=== PATIENT | female | born 1940 | race Caucasian/White ===

== ENCOUNTER 2016-06-24 09:14 | Inpatient (IN) | payer OTHER, MEDICAID ==
[2016-06-24] MEDS ORDERED: PROPOFOL/EMULSION 1,000 MG/100 ML BOTTLE IV ONE (09:21)
[2016-06-24] MEDS ORDERED: MIDAZOLAM 2 MG/2 ML VIAL ONE ×2 (09:26→10:43)
--- NOTE | 2016-06-24 09:35 | EDPHY ---
H & P Time Seen by Provider: 06/24/16 09:30 HPI/ROS: CHIEF COMPLAINT: Found down HISTORY OF PRESENT ILLNESS: Patient is a 75-year-old female with history of obesity gout and hypertension according to her long term records was found down in the hallway with a hematoma to her left eyebrow. When EMS arrived she was unresponsive an agonal breathing. They began bagging her. She had a blood glucose of 23. They administered old glucagon and then an amp of D50 through an intraosseous line. Her glucose improved but her mental status did not. At this time they came emergently to the emergency department. REVIEW OF SYSTEMS: Unable to obtain Nursing assessment reviewed Vital signs reviewed febrile, agonal breathing Patient is again a breathing, lethargic, occasional moan HEAD: Hematoma left forehead lack I NECK: Unable to assess, no step-offs, trachea is midline, EYES: Pinpoint pupils, minimally reactive, unable to test extraocular movement ENT: Very few teeth, poor dentition, redundant tissue, sonorous respirations with bagging CARDIOVASCULAR: heart sounds normal, distant, not tachycardic or bradycardic, Chest is non-tender no rib tenderness no palpable fracture, no crepitus, no subcutaneous emphysema RESPIRATORY: Bilateral breath sounds with bagging and after intubation ABDOMEN: Abdomen is nontender in all 4 quadrants no guarding no rebound, no distention, no hernias, no masses or bruits. GENITAL/RECTAL: Normal external inspection, Stable pelvis NEUROLOGIC/PSYCH: Obtain ended , Shmuel Coma score: 3 SKIN: Intact, warm, dry, nondiaphoretic. BACK: No CVA tenderness, no vertebral point tenderness, no muscle spasm normal range of motion EXTREMITIES: Atraumatic, pelvis stable, no pulse deficit normal color and temperature Source: Patient, EMS, [facility] records Exam Limitations: No limitations - Medical/Surgical History Hx Asthma: No Hx Chronic Respiratory Disease: No Hx Diabetes: No Hx Cardiac Disease: Yes Hx Renal Disease: Yes Hx Cirrhosis: No Hx Alcoholism: No Hx HIV/AIDS: No Hx Splenectomy or Spleen Trauma: No Other PMH: Chronic kindey disease, morbid obesity, obstructive sleep apnea - Family History Significant Family History: Hypertension - Social History Smoking Status: Never smoked (According to H&P 06/21/2011) Drug Use: None Constitutional: Initial Vital Signs Temperature (C) 37.2 C 06/24/16 09:35 Heart Rate 120 H 06/24/16 09:35 Respiratory Rate 14 06/24/16 09:35 O2 Sat (%) 88 L 06/24/16 09:35 O2 Delivery Mode Bag Valve Mask Allergies/Adverse Reactions: amlodipine Allergy (Intermediate, Verified 06/21/11 11:48) amlodipine besylate [From Norvasc] Allergy (Intermediate, Verified 06/21/11 11: 48) aspirin Allergy (Intermediate, Verified 06/21/11 11:48) codeine [Codeine] Allergy (Intermediate, Verified 06/21/11 11:48) hydrochlorothiazide Allergy (Intermediate, Verified 06/21/11 11:48) Penicillins Allergy (Intermediate, Verified 06/21/11 11:48) gluten Allergy (Verified 07/02/15 09:42) lorazepam Allergy (Verified 07/03/15 08:51) Sulfa (Sulfonamide Antibiotics) Allergy (Verified 07/01/15 07:19) triamterene Allergy (Verified 07/01/15 07:19) dye Allergy (Intermediate, Uncoded 06/21/11 11:48) gluten Allergy (Intermediate, Uncoded 06/21/11 11:48) Home Medications: Medication Instructions Recorded Acetaminophen [Tylenol ES 500 mg 1,000 mg PO QID PRN 06/21/11 (*)] Allopurinol [Allopurinol 100 MG 400 mg PO DAILY 06/21/11 (*)] Bisacodyl [Dulcolax Rectal (OTC)] 10 mg SC DAILY PRN 06/21/11 Furosemide [Lasix 40 MG (*)] 40 mg PO BIDDIUR 06/21/11 Magnesium Hydroxide [Milk of 30 ml PO DAILY PRN 06/21/11 Magnesia] Multivitamins [Multivitamin (*)] 1 each PO DAILY 06/21/11 Sennosides/Docusate Sodium 2 each PO BID 06/21/11 [Senna-Docusate Sodium Tablet] oxyCODONE/APAP 5/325 [Percocet 1 tab PO Q4 PRN 06/21/11 5/325 (*)] Calcium Carb W/Vit D [Calcium Carb 500 mg PO BID 07/01/15 W/Vit D 500/200 (*)] Ipratropium/Albuterol [Duoneb (*)] 3 ml IH Q4 PRN 07/01/15 Mag Hydrox/Al Hydrox/Simeth 30 ml PO TID PRN 07/01/15 [Maalox Maximum Strength Suspension] Psyllium Husk [Metamucil] 425 gm PO DAILY PRN 07/01/15 Simethicone [GAS-X] 160 mg PO Q6 PRN 07/01/15 clonazePAM [Klonopin (*)] 0.5 mg PO HS 07/01/15 guaiFENesin [Robitussin Oral 200 mg PO Q4 PRN 07/01/15 Liquid (*)] Gabapentin [Neurontin 300 MG (*)] 300 mg PO TID #0 cap 07/08/15 Cholecalciferol Vit D3 [Vitamin D3 50,000 unit PO AD 06/24/16 (*)] Clindamycin HCl [Clindamycin] 300 mg PO Q6 06/24/16 Herbals/Supplements -Info Only 1 ea PO DAILY 06/24/16 LORazepam [Ativan (*)] 1 mg PO Q6 PRN 06/24/16 Metolazone [Zaroxolyn 5MG (*)] 2.5 mg PO MWF 06/24/16 Potassium Cl [Klor-Con 20 meq (*)] 20 meq PO DAILY 06/24/16 Prochlorperazine Maleate 25 mg SC Q8 PRN 06/24/16 [Compazine 25mg supp (*)] Venlafaxine HCl [Venlafaxine 25MG 50 mg PO BID 06/24/16 (*)] Medical Decision Making - Diagnostics Imaging: Results: CT scan of the head and cervical spine was obtained. The results of the study are negative other than hematoma. The study was read by Dr. Albert. I viewed the images myself on the PACS system. Results: CT scan of the chest abdomen and pelvis was obtained. The results of the study are positive for bilateral pneumonia and infiltrate, some fluid in the abdomen and gas in the right groin likely from the IO. The study was read by Dr. Albert. I viewed the images myself on the PACS system. Procedures: Intubation: emergent intubation the patient. While manually bagging the patient and maintaining the airway, The patient was sedated with 20 mg of Etomidate and paralyzed with 100 mg of succinylcholine. A 7.5 endotracheal tube was placed using the Glidescope. It was placed at 21 cm at the teeth. Placement was confirmed by direct visualization, good color change, and bilateral breath sounds with absent gastric sounds. Chest x-ray is pending. Saturations improved significantly and the procedure was successful. ED Course/Re-evaluation: Soon after patient arrival I called a trauma alert. The patient was intubated and is going to CT scan. She also has a fever. Her hypoglycemia has resolved on I-STAT here her blood sugars 95. 9:40 a.m. the patient's blood pressure is beginning to drop. Currently is 80/ 30. Dr. Mendoza is placing a central line. We are bolusing fluids. Patient is not yet been able to go to CT scan. 10:45 a.m. the patient is responding to fluids. Her blood pressure is currently 103/65. Dr. Mendoza is placed a central line. Antibiotics have begun. Have spoken with hospitalist service and she is admitted by Dr. Joyce to the ICU. I reviewed the CT scan with Dr. Mendoza who does not feel there is any acute abdominal issue. 11:00 a.m. the patient has responded well to fluids. She is also on pressors. Her blood pressure is currently 120/55. Differential Diagnosis: Partial list of the Differential diagnosis considered include but were not limited to; pneumonia, sepsis, head injury, hypoglycemia, urinary tract infection and although unlikely based on the history and physical exam, I also considered acute coronary disease, dissection, aneurysm. Critical Care Time: I spent a total of 35 minutes of critical care time in obtaining history, performing a physical exam, bedside monitoring of interventions, collecting and interpreting tests and discussion with consultants but not including time spent performing procedures . - Data Points Laboratory Results: Laboratory Results 06/24/16 09:20 06/24/16 09:20 06/24/16 06/24/16 06/24/16 10:38 09:20 09:19 WBC 12.08 H 10^3/uL (3.80-9.50) RBC 3.98 L 10^6/uL (4.18-5.33) Hgb 10.3 L g/dL (12.6-16.3) POC Hgb 11.9 L gm/dL (12.3-15.9) Hct 35.9 L % (38.0-47.0) POC Hct 35 L % (35.5-47.5) MCV 90.2 fL (81.5-99.8) MCH 25.9 L pg (27.9-34.1) MCHC 28.7 L g/dL (32.4-36.7) RDW 19.4 H % (11.5-15.2) Plt Count 231 10^3/uL (150-400) MPV 9.7 fL (8.7-11.7) Neut % (Auto) 90.8 H % (39.3-74.2) Lymph % (Auto) 4.4 L % (15.0-45.0) [place] % (Auto) 3.7 L % (4.5-13.0) Eos % (Auto) 0.0 L % (0.6-7.6) Baso % (Auto) 0.2 L % (0.3-1.7) Nucleat RBC Rel Count 0.0 % (0.0-0.2) Absolute Neuts (auto) 10.97 H 10^3/uL (1.70-6.50) Absolute Lymphs (auto) 0.53 L 10^3/uL (1.00-3.00) Absolute Monos (auto) 0.45 10^3/uL (0.30-0.80) Absolute Eos (auto) 0.00 L 10^3/uL (0.03-0.40) Absolute Basos (auto) 0.02 10^3/uL (0.02-0.10) Absolute Nucleated RBC 0.00 10^3/uL (0-0.01) Immature Gran % 0.9 % (0.0-1.1) Immature Gran # 0.11 H 10^3/uL (0.00-0.10) Platelet Estimate ADEQUATE (ADEQ) Polychromasia 1+ H Hypochromasia 1+ H Elliptocytes 1+ H PT 26.9 H SEC (12.0-15.0) INR 2.46 H (0.83-1.16) APTT 33.7 SEC (23.0-38.0) VBG Lactic Acid 14.7 H mmol/L (0.7-2.1) POC Sodium 141 mEq/L (134-144) Sodium 144 mEq/L (134-144) POC Potassium 2.9 L mEq/L (3.3-5.0) Potassium 3.3 L mEq/L (3.5-5.2) POC Chloride 95 L mEq/L (96-108) Chloride 95 L mEq/L (97-110) Carbon Dioxide 24 mEq/l (22-31) Anion Gap 25 H mEq/L (8-16) POC BUN 48 H mg/dL (7-23) BUN 51 H mg/dL (7-23) Creatinine 2.0 H mg/dL (0.6-1.0) POC Creatinine 2.1 H mg/dL (0.6-1.2) Estimated GFR 24 Glucose 92 mg/dL (70-100) POC Glucose 94 mg/dL (70-100) Calcium 7.8 L mg/dL (8.5-10.4) Beta HCG, Qual NEGATIVE Urine Color REJ Urine Appearance TNP Urine pH TNP Ur Specific [place] TNP Urine Protein TNP Urine Ketones TNP Urine Blood TNP Urine Nitrate TNP Urine Bilirubin TNP Urine Urobilinogen TNP Ur Leukocyte Esterase TNP Urine RBC TNP Urine WBC TNP Ur Epithelial Cells TNP Urine Glucose TNP Urine Opiates Screen NEGATIVE (NEGATIVE) Urine Barbiturates NEGATIVE (NEGATIVE) Ur Phencyclidine Scrn NEGATIVE (NEGATIVE) Ur Amphetamine Screen NEGATIVE (NEGATIVE) U Benzodiazepines Scrn NON-NEGATIVE H (NEGATIVE) Urine Cocaine Screen NEGATIVE (NEGATIVE) U Marijuana (THC) Screen NEGATIVE (NEGATIVE) Ethyl Alcohol < 10 mg/dL (0-10) Medications Given: Discontinued Medications Dopamine HCl/Dextrose (Dopamine 1600 Mcg/Ml (Premix)) 250 mls @ 0 mls/hr IV EDNOW ONE; Titrate PRN Reason: Protocol Stop: 06/24/16 09:51 Last Admin: 06/24/16 09:50 Dose: 250 mls Norepinephrine 4 mg/ Sodium (Chloride) 504 mls @ 0 mls/hr IV EDNOW ONE; Titrate PRN Reason: Protocol Stop: 06/24/16 10:35 Last Admin: 06/24/16 11:00 Dose: 504 mls Ertapenem 1 gm/ Sodium (Chloride) 100 mls @ 200 mls/hr IV EDNOW ONE PRN Reason: Protocol Stop: 06/24/16 11:05 Last Admin: 06/24/16 11:56 Dose: 100 mls Sodium Chloride (Ns *For Sepsis Order Set Only*) 3,540 ml IV ONCE ONE Stop: 06/24/16 13:48 Last Admin: 06/24/16 14:38 Dose: Not Given Point of Care Test Results: 06/24/16 09:19 POC Sodium 141 POC Potassium 2.9 L POC Chloride 95 L POC BUN 48 H POC Creatinine 2.1 H POC Glucose 94 Departure - Departure Disposition: [facility] Inpatient Acute Clinical Impression: Sepsis Qualifiers: Sepsis type: sepsis due to unspecified organism Qualifier Code: (A41.9) Sepsis , unspecified organism Pneumonia Qualifiers: Pneumonia type: due to unspecified organism Laterality: bilateral Lung location : lower lobe of lung Qualifier Code: (J18.9) Pneumonia, unspecified organism Head injury Qualifiers: Encounter type: initial encounter Qualifier Code: (S09.90XA) Unspecified injury of head, initial encounter Condition: Critical
[2016-06-24 09:38] LABS: % IMMATURE GRANULYOCYTES 0.9 % (0.0-1.1); ABSOLUTE IMMATURE GRANULOCYTES 0.11 10^3/uL (0.00-0.10); ADD DIFF? NO; ADD MORPH? YES; ADD SCAN? NO; ATYPICAL LYMPHOCYTE FLAG 30 (0-99); FRAGMENT RBC FLAG 20 (0-99); HEMATOCRIT 35.9 % (38.0-47.0); HEMOGLOBIN 10.3 g/dL (12.6-16.3); LEFT SHIFT FLG 0 (0-99); LIPEMIA HEMOLYSIS FLAG 70 (0-99); MEAN CELL HEMOGLOBIN 25.9 pg (27.9-34.1); MEAN CELL VOLUME 90.2 fL (81.5-99.8); MEAN PLATELET VOLUME 9.7 fL (8.7-11.7); PLATELET CLUMPS FLAG 40 (0-99); PLATELET COUNT 231 10^3/uL (150-400); RED BLOOD CELL COUNT 3.98 10^6/uL (4.18-5.33); RED CELL DISTRIBUTION WIDTH 19.4 % (11.5-15.2)
[2016-06-24] MEDS ORDERED: DOPamine/DEXTROSE/250 ML BAG IV ONE (09:40)
[2016-06-24 09:47] LABS: INR 2.46 (0.83-1.16); PROTIME(PATIENT) 26.9 SEC (12.0-15.0)
[2016-06-24 09:48] LABS: APTT 33.7 SEC (23.0-38.0); MEAN CELL HEMOGLOBIN CONCENTR. 28.7 g/dL (32.4-36.7)
[2016-06-24 09:54] LABS: ANION GAP 25 mEq/L (8-16); CALCIUM 7.8 mg/dL (8.5-10.4); CARBON DIOXIDE 24 mEq/l (22-31); CHLORIDE 95 mEq/L (97-110); ETHANOL SERUM < 10 mg/dL (0-10); GLOMERULAR FILTRATION RATE 24; GLUCOSE 92 mg/dL (70-100); POTASSIUM 3.3 mEq/L (3.5-5.2); SODIUM 144 mEq/L (134-144)
[2016-06-24 10:32] LABS: PLATELET ESTIMATE ADEQUATE (ADEQ)
[2016-06-24 10:33] LABS: ELLIPTOCYTES 1+; HYPOCHROMIA 1+; POLYCHROMASIA 1+
[2016-06-24] MEDS ORDERED: NOREPINEPHRINE BITARTRATE 4 MG in NS 500 ML IV ONE (10:34)
[2016-06-24] MEDS ORDERED: ERTAPENEM 1 GM in NS 100 ML IV ONE (10:36)
[2016-06-24 10:38] LABS: LACGHOST ORDER
[2016-06-24] MEDS ORDERED: fentaNYL 100 MCG/2 ML INJ ONE (10:44)
--- NOTE | 2016-06-24 11:04 | CT ---
CT Cervical Spine Indication: Trauma. Comparison: None. Technique: 1.25 mm thick axial collimated slices were obtained from the occiput through superior endp late of T2. The data were reconstructed in the sagittal and coronal planes. Both soft tissue and bone windows were reviewed. Dose reduction techniques were utilized. Findings: The occiput through T2 is anatomically aligned. No acute fracture or soft tissue swelling. The bones are demineralized. The lung apices are clear. An ET tube is present in the airway. Impression: 1. No acute fracture or soft tissue swelling. 2. If the patient has persistent pain or neurologic deficits, consider cervical spine MRI. Findings discussed with emergency department physician, Jewel Zuñiga at June 24, 2016, at 10 :40 a.m.
--- NOTE | 2016-06-24 11:09 | CT ---
CT Head (Without Contrast) 10:07 a.m. Indication: Full trauma. Found down. Comparison: CT head dated July 02, 2015, and brain MRI dated July 05, 2015 Technique: Standard noncontrast head CT protocol utilizing 5 mm thick collimated slices and field of view of 23 cm. Dose reduction techniques were utilized. Findings: A large left periorbital hematoma is present along the lateral wall of the left orbit and l ow left frontal bone. No underlying acute skull or facial fracture. No acute intracranial hemorrhage or swelling. Atrophy, mild low attenuation periventricular white matter disease, and partially calcified low atten uation extraaxial lesion in the right middle fossa, measuring 2.7 cm, are unchanged. Mild mucosal thi ckening in the ethmoid and maxillary air cells is unchanged. Impression: 1. Left periorbital hematoma. 2. No acute skull or facial fracture. 3. No acute intracranial hemorrhage or swelling 4. Suspected epidermoid cyst in the right middle fossa is unchanged. Findings discussed with emergency department physician Jewel Zuñiga, June 24, 2016, at 10:40 a .m.
--- NOTE | 2016-06-24 11:21 | CT ---
CT Chest Without Contrast Indication: Trauma. History of pulmonary nodules. Attempted left subclavian line. Technique: Standard CT of the chest utilizing 5 mm collimated slices through the thorax. Dose reduct ion techniques were utilized. Comparison: CT chest dated July 27, 2015,and July 05, 2015. Findings: No acute rib, sternal, or thoracic spine fracture. An ET tube is well positioned with the tip 3 cm above the roger. Minimal subcutaneous gas and strand ing are present in the left axilla at site of an attempted left subclavian line placement. No pneumot horax. The aortic contour is normal. No mediastinal hematoma. The heart size is minimally enlarged with thre e-vessel calcified coronary plaque. Minimal gas resides in the right atrium, likely due to IV access. Dense left lower lobe airspace consolidation with air bronchograms is accompanied by patchy nodular airspace consolidation in the right lower lobe, posterior segment left upper lobe, and posterior segm ent right upper lobe. Ground-glass opacities are scattered throughout the right and left lungs with r elative sparing of the subpleural distribution suggesting underlying interstitial edema. Numerous pulmonary nodules are present throughout the right and left lungs. The two largest nodules i n the right lower lobe and posterior segment left upper lobe adjacent to the fissure have both minima lly increased in size since 2016. For example, a nodule in the right lower lobe on image 105 of serie s 3 now measures 1.5 x 1.0 cm (previously 1.3 x 0.9 cm) and a nodule in the left upper lobe adjacent the major fissure on image 65 of series 4 now measures 2.0 x 1.3 cm (previously 1.7 x 0.8 cm). Small to moderate right pleural effusion and trace left effusion. No pericardial effusion. Impression: 1. No acute fracture or pneumothorax. 2. Well-positioned ET tube. 3. Suspect multifocal airspace consolidation or aspiration rather than pulmonary contusion. 4. Small to moderate right and trace left pleural effusion. 5. Three-vessel calcified coronary plaque and minimal cardiomegaly. Equivocal edema. 6. Increasing in size pulmonary nodules. Recommend follow-up noncontrast chest CT after resolution of acute process to confirm size of pulmonary nodules. Findings discussed with emergency department physician, Jewel Zuñiga, on June 24, 2016, at 10: 30 a.m.
--- NOTE | 2016-06-24 11:38 | CT ---
CT Scan of the Urinary Tract (Abdomen and Pelvis Without Contrast) Indication: Full Trauma. 2.1 creatinine. Technique: Multidetector helical CT imaging was performed from the kidneys to the urinary bladder wi thout contrast. Dose reduction techniques were utilized. Comparison: CT abdomen pelvis dated July 01, 2015. Findings: Small volume of free fluid present along the anterior surface of the liver and posterior paz rface of the spleen tracks inferiorly into the ted hepatis and surrounds the pancreatic head. Trace free fluid resides in the low pelvis. The fluid along the surface of liver is low attenuation with H [place] unit of 4. No pneumoperitoneum or organized fluid collection. The noncontrast liver is partially obscured by attenuation artifact radiating off the patient's right arm. No definite solid organ laceration. Partial fatty replacement of the pancreas is unchanged. Per ipancreatic edema and stranding are new since June 2015. No biliary dilation or evidence of commo n bile duct stone. The gallbladder is absent with surgical clips in the gallbladder fossa. Benign bilateral adrenal myelolipomas are unchanged in size. Benign bilateral fluid attenuation renal cysts are unchanged. The largest emanating off the superior pole of the left kidney measures 8.5 cm. No hydronephrosis. A 2 mm calculus in the right intrarenal collecting system is unchanged in size an d position. No ureteral calculi or hydroureteronephrosis. The urinary bladder is completely empty and contains a Mchugh catheter balloon. Large low left abdominal wall hernia containing uninflamed, unobstructed loops of small bowel is unch anged in size. Minimal fluid is present in the dependent portion of the hernia sac. Large volume abhinav ined stool is present throughout the colon. Transverse colon and cecum have mild gaseous distention s uggestive of mild adynamic ileus. No evidence of mechanical obstruction. The abdominal aorta is normal caliber with mild calcified plaque. Inferior vena caval filter is uncha nged in position. Several small gas bubbles are present in the right common femoral vein. No acute lumbar spine or pelvic fracture. Diffuse subcutaneous edema is present along bilateral flank s. No abdominal wall hematoma. Impression: 1. No acute fracture. 2. Small volume of simple free fluid throughout the right and left upper quadrant and pelvis. Suspect benign free fluid rather than hemoperitoneum. 3. Query pancreatitis as underlying source of free fluid. 4. The test is limited since no IV contrast was administered (elevated creatinine) 5. Mild adynamic ileus. No mechanical obstruction. 6. Left lower abdominal wall hernia containing uninflamed, unobstructed loops of small bowel is unch anged since June 2015. Findings discussed with emergency department physician, Jewel Zuñiga, on June 24, 2016, at 10 :30 a.m.
--- NOTE | 2016-06-24 11:54 | DX ---
Portable Chest, Single View 10:46 AM on June 24, 2016 Indication: Found down. Comparison: Portable chest dated July 04, [address] chest from less than one hour prior. Findings: The ET tube is well-positioned with the tip 3.5 cm superior to the roger. A right subclavi an central venous line is present with the tip in the low right atrium. No pneumothorax. Diffuse groundglass opacities throughout the right lung have equivocally increased. Dense left basila r consolidation and patchy consolidation in the left upper lobe are unchanged. Moderate cardiomegaly. No acute fracture. Impression: 1. Good position of support devices. No pneumothorax. 2. Equivocal worsening interstitial edema. 3. Left lung consolidation, more likely pneumonia or aspiration than contusion is unchanged.
[2016-06-24] MEDS ORDERED: SUCCINYLCHOLINE CHLORIDE*ANESTHESIA ONLY*200 MG/10 ML SYR IVP ONE (13:20)
[2016-06-24] MEDS ORDERED: ETOMIDATE 40 MG/20 ML INJ ONE (13:20)
[2016-06-24] MEDS ORDERED: LORazepam 1 MG TAB PO PRN (13:44)
[2016-06-24] MEDS ORDERED: ACETAMINOPHEN 500 MG TAB PO PRN (13:44)
[2016-06-24] MEDS ORDERED: NS 1,000 ML BAG *FOR SEPSIS ORDER SET ONLY IV ONE (13:47)
[2016-06-24] MEDS ORDERED: PROTOCOL POTASSIUM 1 DOSE MISC PRN (13:56)
[2016-06-24] MEDS ORDERED: D5W NS 1,000 ML IV SCH (14:00)
[2016-06-24] MEDS ORDERED: VASOPRESSIN/DEXTROSE 250 ML IV SCH (14:00)
[2016-06-24] MEDS ORDERED: NOREPINEPHRINE BITARTRATE 4 MG in D5W 500 ML IV SCH (14:00)
[2016-06-24 14:21] LABS: BASE EXCESS 1.4 mEq/L (-2.5-2.5); BICARBONATE 25 mEq/L (22-26); MEASURED OXYGEN SATURATION 90 % (92-95); PCO2 38 mmHg (34-38); PO2 61 mmHg (65-75); TCO2 26 mEq/L (23-27)
[2016-06-24 14:24] LABS: SIMV YES
--- NOTE | 2016-06-24 14:24 | CPEKG ---
Heart Rate: 83 RR Interval: 723 QRSD Interval: 94 QT Interval: 338 QTC Interval: 398 QRS [place]: 64 T Wave [place]: -14 EKG Severity - ABNORMAL ECG - EKG Impression: ATRIAL FIBRILLATION EKG Impression: MULTIPLE VENTRICULAR PREMATURE COMPLEXES EKG Impression: LOW VOLTAGE IN FRONTAL LEADS EKG Impression: CONSIDER ANTERIOR INFARCT EKG Impression: BORDERLINE T ABNORMALITIES, DIFFUSE LEADS Electronically Signed By: Kannan Chavez 24-Jun-2016 14:40:27
[2016-06-24 14:25] LABS: END TIDAL CO2 33; P/F RATIO 61 RATIO
[2016-06-24 14:26] LABS: O2 CONCENTRATIION 100 % (0-100); PATIENT RATE 14; PRESSURE SUPPORT 7
[2016-06-24 14:42] LABS: ALANINE AMINOTRANSFERASE 238 IU/L (9-52); ALBUMIN 2.6 g/dL (3.5-5.0); ALKALINE PHOSPHATASE 219 IU/L (38-126); ASPARTATE AMINOTRANSFERASE 686 IU/L (14-46); BILIRUBIN,TOTAL 1.8 mg/dL (0.1-1.4); BILIRUBIN-CONJUGATED 1.6 mg/dL (0.0-0.5); BILIRUBIN-UNCONJUGATED 0.2 mg/dL (0.0-1.1); TOTAL PROTEIN 6.2 g/dL (6.3-8.2)
[2016-06-24] MEDS: GABAPENTIN 300 MG CAP PO SCH ×2 (14:45→21:53)
[2016-06-24 14:54] LABS: COLOR YELLOW; LEUKOCYTE ESTERASE,URINE NEGATIVE (NEGATIVE); NITRITE,URINE NEGATIVE (NEGATIVE)
[2016-06-24 14:58] LABS: BACTERIA NONE SEEN /hpf (NONE SEEN); GRANULAR CASTS 15-25 /lpf (0-1); MUCUS TRACE /lpf (NONE-1+)
--- NOTE | 2016-06-24 15:34 | GHP ---
[f rep st] HISTORY AND PHYSICAL DATE OF ADMISSION: 06/24/2016 CHIEF COMPLAINT: Found down. HISTORY: The patient is a 75-year-old female, long-term resident of [facility], who was found aft er sliding out of her bed and found on the floor. She had a hematoma of her left eyebrow. She was u nresponsive. EMS was called and she was, on their arrival, unresponsive with agonal bleeding. Blood glucose in the field was 23. She was given IO and administered glucagon and D50. Her glucose ian; however, she remained unresponsive. She presented to the emergency room and was intubated in the ER . A central line was placed by Dr. Mendoza. She was found to be febrile. Her sister is currently at bedside and reports that the patient has a chronic Mchugh catheter for a lo ng period of time due to chronic urinary retention. She had developed a fever a couple of weeks ago, and [facility] diagnosed her with a urinary tract infection and started her o n antibiotics. She comes to us on oral clindamycin. The fever did go way and it felt like she was i mproving, although she was having increasing anxiety and agitation and had newly been started on Ativ an. She also struggles with chronic lower extremity edema and had been told at the [facility] to d ecrease her oral intake to try to reduce her lower extremity edema. Her edema is currently much bett er than her baseline. PAST MEDICAL HISTORY: 1. Morbid obesity. 2. Gout. 3. Hypertension. 4. Urinary retention with hydronephrosis with chronic Mchugh catheter. 5. Epidermoid cyst compressing the temporal lobe, causing a seizure disorder. 6. DVT and pulmonary embolus, status post IVC filter. 7. Celiac disease. 8. Chronic kidney disease, baseline creatinine 1.4. MEDICATIONS: Please see computer record for a full detailed list. ALLERGIES: Penicillin, sulfa, IV dye. SOCIAL HISTORY: No smoking. No alcohol. She is a permanent resident at [facility]. She is uday mbulatory at baseline. Her mental status, however, is very good and she keeps very up to date on cur rent events. Her sister is her power of camper assembler and is currently at bedside. REVIEW OF SYSTEMS: Review of systems is unobtainable due to the patient being intubated and sedated. FAMILY HISTORY: Unobtainable. PHYSICAL EXAMINATION: GENERAL: Well-developed, well-nourished female in no acute distress. VITAL S IGNS: Temperature is 38.4, pulse 120, blood pressure 100/57, satting 100% on the vent. HEENT: Eyes : Normal conjunctivae. Pupils equal and react to light. ENT: Normal ears and nose. Endotracheall y intubated. Oropharynx dry. NECK: Trachea midline. No thyromegaly. CHEST: Decreased respirator y effort on the vent. LUNGS: Clear to auscultation bilaterally. CARDIOVASCULAR: Regular rate and rhythm. No murmur. 3 to 4+ lower extremity edema, which appears chronic with chronic venous stasis changes. ABDOMEN: Soft, nontender. No hepatosplenomegaly. SKIN: Warm, dry, and intact. No rash. MUSCULOSKELETAL: Unobtainable due to patient being intubated and sedated. NEURO: Unobtainable du e to patient being intubated and sedated. Psych: Intubated, sedated, minimally responsive, although she is withdrawing to pain as the ABG is attempting to be obtained. LABS: White count 12.08, hematocrit 35.9, platelets 231. Sodium 144, potassium 3.3, chloride 95, bi carb 24, BUN 51, creatinine 2.0, glucose 92. INR is 2.46. Lactate is 14.7. CT scan of the chest shows pneumonia, suspicious for aspiration and increasing size of previously see n pulmonary nodules. ASSESSMENT/PLAN: 1. Septic shock. She is currently on pressors. Source of sepsis is likely pneumonia versus urinary tract infection. She came in as a trauma alert to the ER given the fact she was found down with a p eriorbital hematoma, and so she was not fully cultured per routine. I will try to get blood cultures , urine cultures, and sputum sent on any fluid that might have been obtained prior to initiating IV I nvanz in the emergency room. She is a [facility] resident, so therefore at risk for Pseudomonas an d methicillin-resistant Staphylococcus aureus, so we will empirically treat her with meropenem and va ncomycin. Continue norepinephrine. She did get a 6 L IV fluid bolus in the emergency room, and we w ill place her on sepsis protocol. Her lactate is very elevated, and this will be followed serially. 2. Acute respiratory failure. She is intubated. We will check an ABG. 3. Acute on chronic kidney disease. Baseline creatinine is 1.4. We will hold her diuretics and fol low up post hydration. 4. Urinary retention with chronic Mchugh catheter. She was recently treated for a urinary tract infe ction [facility] the [facility] with oral clindamycin. We will contact Nikki Chen to see results of rec ent urine culture. 5. Hypoglycemia secondary to sepsis. She also has an elevated INR despite not being on anticoagulat ion. This suggests a degree of hepatic failure. We will check her LFTs. 6. Morbid obesity. BMI is 42. 7. Pulmonary embolus and deep venous thrombosis, status post IVC filter. 8. Chronic venous stasis. We will hold her diuretics. We will check bilateral lower extremity ultr asounds for deep venous thrombosis. 9. Seizure disorder secondary to an epidermal cyst at the temporal lobe. Her only seizure medicatio n appears to be gabapentin. 10. Pulmonary nodules. These are increasing in size compared with our previous CAT scan. These jorgito l need to be followed. CORE STATUS: Limited. She does not desire CPR according to her sister but otherwise is okay with ev erything else. ADMISSION STATUS: 1. We will admit to inpatient as she is critically ill. 2. DVT prophylaxis. She is auto anticoagulated with an elevated INR, so therefore we will hold off on pharmacologic prophylaxis at this time. We will rule out DVT in her legs prior to administering S CDs. Critical care time spent was 1 hour. /[id number]/MODL
[2016-06-24 15:41] LABS: MIXED VENOUS O2 SATURATION 79 % (65-75)
[2016-06-24] MEDS: VANCOMYCIN 1.25 GM in D5W 250 ML IV SCH (15:45)
[2016-06-24] MEDS: PROPOFOL/EMULSION 100 ML IV SCH (15:45)
--- NOTE | 2016-06-24 15:48 | US ---
Ultrasound Venous Duplex Doppler - Bilateral Legs at 1443 hours History: Bilateral leg edema. Findings: Ultrasound venous Duplex and Doppler imaging of the bilateral common femoral veins, femoral veins, popliteal veins, and greater saphenous vein origins demonstrates normal compressibility, Dup sofya color-flow, Doppler flow without deep venous thrombosis. Limited evaluation of bilateral calf vei ns due to patient body habitus. Impression: 1. No major deep venous thrombosis bilateral legs. 2. Limited evaluation of the calf veins.
[2016-06-24 19:02] LABS: POTASSIUM 2.6 mEq/L (3.5-5.2)
[2016-06-24] MEDS: POTASSIUM Cl (KCl) 50 ML IV SCH ×2 (19:17→20:13)
--- NOTE | 2016-06-24 20:00 | GCON ---
[f rep st] CONSULTATION PULMONARY CRITICAL CARE CONSULTATION DATE OF CONSULTATION: 06/24/2016 REASON FOR CONSULTATION: Acute respiratory failure in a patient found down at her care home. HISTORY: The patient is a 75-year-old woman with multiple medical problems as outlined below. She was found unresponsive on the floor of her care home, apparently next to her bed. She had a hematoma above her left eye. She was not responsive. The paramedics found agonal breathing and a blood glucose reportedly of approximately 20. D10 was given, and she was transported to the emergency department. She was unresponsive on arrival. She was intubated, a central line placed. She is a long-time resident of [facility]. She was recently found to have a urinary tract infection and apparently has been on antibiotics of clindamycin. She is wheelchair bound at the care home, has multiple medical problems including a chronic indwelling Mchugh catheter, morbid obesity, previous pulmonary embolic disease, status post an IVC filter, chronic hypoxemia, etc. PAST MEDICAL HISTORY: Morbid obesity, systemic hypertension, hydronephrosis and urinary retention associated with chronic renal insufficiency. She has a chronic indwelling Mchugh catheter, a seizure disorder, celiac disease, and gout. DRUG ALLERGIES: Multiple. These include amlodipine, aspirin, codeine, hydrochlorothiazide, penicillins, lorazepam, sulfa preparations, triamterene, contrast, and gluten. SOCIAL HISTORY: The patient lives at [facility]. Despite her medical problems, she apparently does fairly well there. She was last hospitalized one year ago. She has limited resuscitation status with no compressions. Her sister is the power of patent prosecution attorney. FAMILY HISTORY: Noncontributory. REVIEW OF SYSTEMS: Unobtainable. MEDICATIONS: She is on multiple medications at home including DuoNeb, clindamycin, venlafaxine, Neurontin 300 three times daily, Lasix, Zaroxolyn, potassium, and allopurinol. PHYSICAL EXAMINATION: GENERAL: Reveals a woman who is unresponsive to voice and commands currently; however, she is on the ventilator and somewhat sedated. She will withdraw extremities to painful stimulation. HEENT: An endotracheal tube in is in place. Ecchymosis and swelling related to the left eye and periorbital area. Left eye is swollen shut. CHEST: Reveals decreased breath sounds bilaterally. Breath sounds are coarse. There is some possible dullness at the bases. She does have some thick purulent secretions, a few rhonchi, and some wheezes/pulmonary congestion. HEART: Heart tones are quite distant secondary to body habitus. The heart rate is approximately 75. Murmurs and gallops are difficult to appreciate. ABDOMEN: Quite obese. It appears to be soft. Bowel sounds are very diminished but present. A chronic indwelling Mchugh catheter is in place. Urine output is low. EXTREMITIES: Remarkable for 2 to 3+ chronic lower extremity edema. Cords and tenderness cannot be assessed. NEUROLOGIC: Nonfocal; however, she remains obtunded. Pupils appear equal. DIAGNOSTIC STUDIES: CT scan of the chest shows a pleural effusion on the right side with associated atelectasis, left lower lobe infiltrate and a small pleural effusion on the left. LABORATORY: White blood cell count is 12,000, hematocrit 36, platelets are 231, 000. INR at admission was 2.46, PTT 33.7. Arterial blood gas shows a pH of 7.43 on the ventilator, a pCO2 of 38, and PO2 of 61. Lactate is 2.7, mixed venous O2 is 79. Sodium is 144, potassium 3.3, BUN 51, with a creatinine of 2.0. Glucose is 92. Bilirubin is 1.8 with an AST of 686 and an ALT of 238. Albumin is 2.6. Lipase was normal. Urinalysis is positive for protein and some blood; however, no red blood cells were seen. There were no white blood cells. No urine bacteria seen. Tox screen was negative on admission except for some benzodiazepines. ASSESSMENT: 1. Found down. The etiology for her collapse is unknown but was apparently associated with hypoglycemia. However, following glucose, she has not woken up. Multiple etiologies for her collapse at [facility] are possible. She did strike her head in the left eye area and has associated hematoma and swelling. CT scan of the head was negative for intracranial injury. 2. Acute respiratory failure. Status post intubation. On the ventilator. Still requiring high-flow oxygen. 3. Probable pneumonia related to the left lower lobe. She could have aspirated ? Broad-spectrum antibiotics are being given. 4. Right-sided pleural effusion. Probably secondary to congestive heart failure. 5. Morbid obesity. 6. Multiple chronic medical problems as outlined in the history of present illness. 7. History of deep venous thrombosis and pulmonary embolism. Apparently not on anticoagulation. She does have an inferior vena cava filter in place. Prophylactic anticoagulation would be recommended. There is no evidence for deep venous thrombosis by venous Doppler ultrasound done today. 8. Sepsis. She has received significant fluids and is no longer hypotensive. She is on appropriate antibiotics for presumed pulmonary source. These include cefepime, clindamycin, and vancomycin. She is requiring pressor therapy: Norepinephrine. 9. Hypoglycemia present in the field. She is on D5 normal saline and maintaining normal glucoses. The reason for her hypoglycemia is unclear. She did not appear to be on any medications for diabetes at [facility]. 10. Elevated liver function studies. Query secondary to hypotension/shock liver. 11. Abnormal mental status. She was found down, unresponsive. I currently do not know how long she may have been down for or her blood pressure during that time. Currently mental status is difficult to assess. PLAN AND RECOMMENDATIONS: The patient will be kept in the intensive care unit with appropriate ventilatory support. Intravenous fluids and pressors will be continued. D5 will be continued. Glucoses will be followed. Chest x-ray and laboratory will be followed. A sputum culture has been sent. Current antibiotics will be continued. The patient is limited resuscitation but essentially we are instructed to do everything except for chest compressions. Her prognosis is guarded at this time secondary to her age, underlying comorbidities, and evidence of multiorgan failure. 70 minutes of critical care time was spent directly with the patient. Previous records, radiologic studies, etc. were all reviewed personally. /[id number]/MODL and [id number]/MODL [facility]
--- NOTE | 2016-06-24 20:31 | POSTOPPROG ---
Post Op Note Date of Operation: 06/24/16 Surgeon: Marshall Mendoza Anesthesia: Local (Specify) Pre-op Diagnosis: sepsis Post-op Diagnosis: same Indication: hypotension Procedure: rt subclavian triple lumen cath placement Findings: good flow Inf/Abcess present in the surg proc area at time of surgery?: No Depth: Deep Incisional (Fascial) EBL: Minimal Complications: 0
[2016-06-24] MEDS ORDERED: MEROPENEM 1 GM in NS 100 ML IV SCH (21:00)
[2016-06-24] MEDS ORDERED: clonazePAM 0.5 MG TAB PO SCH (21:00)
--- NOTE | 2016-06-24 21:14 | GOP ---
[f rep st] OPERATIVE REPORT DATE OF OPERATION: 06/24/2016 SURGEON: Marshall Mendoza MD PREOPERATIVE DIAGNOSIS: Sepsis and hypotension. POSTOPERATIVE DIAGNOSIS: Sepsis and hypotension. PROCEDURE PERFORMED: Right subclavian triple-lumen catheter placement. FINDINGS: GOOD FLOW DESCRIPTION OF PROCEDURE: The patient was in the ER in extremis with hypotension, respiratory failure, requiring intubation and thrill evaluation. She was difficult to obtain IV access for pressors. A right subclavian triple- lumen catheter was placed. The patient was placed in Trendelenburg, prepped and draped in usual sterile fashion. An attempt was made in the left subclavian. Access was obtained. Good blood flow was returned, but the guidewire would not thread. That side was abandoned and the right side was approached, and again, a single stick was made into the right subclavian vein with good blood return. The guidewire would pass easily down into the right atrium. A dilator was passed over the guidewire, and a triple-lumen catheter was then passed over the guidewire and secured in place with 3-0 silk sutures. Good backflow was present. The catheters were flushed with heparin and saline. She tolerated the procedure well. There were no complications. /[id number]/MODL [facility]
[2016-06-24] MEDS: CEFEPIME HCL 2 GM in D5W 100 ML IV SCH (21:15)
[2016-06-24] MEDS: SENNOSIDES/DOCUSATE SODIUM TAB PO SCH (21:53)
[2016-06-24] MEDS: VENLAFAXINE HCL 25 MG TAB PO SCH (21:54)
--- NOTE | 2016-06-24 22:07 | SOAPPROG ---
SOAP Progress Note Assessment/Plan: Assessment: 75 FEMALE SEEN EARLIER TODAY AT 10 AM FULL TRAUMA ACTIVATION SINCE FOUND DOWN EXAM SHOWS LEFT ORBITAL HEMATOMA BUT NO OTHER TRAUMA SIGNS PUPILS PINPOINT AND PT UNRESPONSIVE/HX OF GLUCOSE DOWN TO 20 NON RESPONSIVE AND MINIMAL MOTOR ACTIVITY IMPRESSION: CVA OR HYPOGLYCEMIC BRAIN INJURY AND OR SEPSIS Plan: RESUSCITATION/ MED ADMIT/ CENTRAL ACCESS 06/24/16 22:02 Objective: Vital Signs Temp Pulse Resp BP Pulse Ox 37.2 C 90 14 107/57 L 100 06/24/16 16:00 06/24/16 21:00 06/24/16 21:00 06/24/16 21:00 06/24/16 21:00 Microbiology 06/24/16 17:00 - Final Sputum, Induced/Suctioned Laboratory Results 06/24/16 18:00 06/23/16 06/24/16 06/25/16 05:59 05:59 05:59 Intake Total 948 Output Total 250 Balance 698 PT 26.9 SEC (12.0-15.0) H 06/24/16 09:20 INR 2.46 (0.83-1.16) H 06/24/16 09:20 ICD10 Worksheet Patient Problems: Problems Problem Status Diagnosed Head injury Acute Pneumonia Acute Sepsis Acute Altered mental status Acute Hyperkalemia Acute Nausea and vomiting Acute Palliative care encounter Acute Renal failure, acute on chronic Acute
[2016-06-24] MEDS: CLINDAMYCIN 900 MG/DEXTROSE 50 ML IV SCH (22:14)
[2016-06-24] MEDS: fentaNYL/NACL 100 ML IV SCH (22:21)
[2016-06-24] MEDS: NOREPINEPHRINE BITARTRATE 4 MG in D5W 500 ML IV SCH (23:30)
[2016-06-25] MEDS: POTASSIUM Cl (KCl) 50 ML IV SCH ×7 (00:28→21:05)
--- NOTE | 2016-06-25 00:40 | GCON ---
[f rep st] CONSULTATION DATE OF CONSULTATION: 06/24/2016 HISTORY OF PRESENT ILLNESS: Patient is a 75-year-old female, [facility] in from a [facility] and seen early this morning around 10 am. She presented as being found down and was brought in as a full tra wilma activation because of the cephalohematoma over the right eye. She is reported to have a blood paz gar of 20 when found by the paramedics. She has been largely unresponsive and required intubation in the emergency room on arrival. Pupils have been pinpoint, and she is not moving any extremities. A ccording to family history, she has been going downhill over the last few weeks. She has also had a recent fever and some ortiz with a UTI. She has a chronic indwelling Mchugh. She also has a history of a large periumbilical hernia. She was seen by me in the ER for critical care for nearly 2 hours. She remained relatively hypotensive with blood pressure in the 60s to 80 range requiring pressors a nd fluid challenges. She made essentially no urine in the emergency room, and her creatinine was ove r 2, so we could not use contrast for her CT scans. Head and neck scan was negative for any signs of injury. Chest scan showed a moderate right pleural effusion and pneumonia in the left lower lobe. PAST MEDICAL HISTORY: Includes obesity, chronic renal failure, celiac disease, history of pulmonary emboli and DVT for which she has a cava filter. She has had epidermoid cyst compressing her temporal lobe. Hypertension, gout, and morbid obesity. ALLERGIES: Penicillin and sulfa. REVIEW OF SYSTEMS: Unobtainable as was past history and family history. PHYSICAL EXAMINATION: GENERAL: Reveals an overweight and healthy-appearing, 75-year-old female who is an extremist. HEAD AND NECK: Reveals her to be intubated. Pupils are pinpoint and nonreactive. She has a cephalohematoma over the left zygomatic area that is making her eyes closed shut. Her lef t pupil is reactive and pinpoint. Her TMs are clear. NECK: Supple without obvious trauma. CHEST: Symmetrical breath sounds. CARDIAC: Regular rhythm. ABDOMEN: Soft. She has a large periumbilica l hernia which is mostly reducible. PELVIC: Reveals an indwelling Mchugh catheter and much excoriati on and some ulceration in her vulva. EXTREMITIES: Marked chronic edema with [id number]-[id number]-[id number] pedal pulses. IMPRESSION: An extremely ill 75-year-old female who is in acute distress. Possibilities include sep sis and mental problem secondary to hypoglycemia from her diabetes as well as a possible cerebrovascu lar accident. This does not appear to be a trauma case as the trauma that she sustained is secondary to whatever caused her to be found down. CT scans of her head and neck and chest showed no real jusitn dence of trauma other than a small cephalohematoma. PLAN: Admit to medicine service with followup evaluation. We will start her on pressors with a cent ral line in place, and we will follow along. Her large hernia is mostly reducible. I do not think t hat is the source of the present problems, and it should be noted she has some enlarging pulmonary no dules on her CT scan. /[id number]/MODL
[2016-06-25 04:26] LABS: % IMMATURE GRANULYOCYTES 0.7 % (0.0-1.1); ABSOLUTE IMMATURE GRANULOCYTES 0.08 10^3/uL (0.00-0.10); ADD DIFF? NO; ADD MORPH? NO; ADD SCAN? NO; ATYPICAL LYMPHOCYTE FLAG 80 (0-99); FRAGMENT RBC FLAG 20 (0-99); HEMATOCRIT 36.3 % (38.0-47.0); HEMOGLOBIN 10.6 g/dL (12.6-16.3); LEFT SHIFT FLG 0 (0-99); LIPEMIA HEMOLYSIS FLAG 70 (0-99); MEAN CELL HEMOGLOBIN 25.6 pg (27.9-34.1); MEAN CELL HEMOGLOBIN CONCENTR. 29.2 g/dL (32.4-36.7); MEAN CELL VOLUME 87.7 fL (81.5-99.8); MEAN PLATELET VOLUME 10.5 fL (8.7-11.7); PLATELET CLUMPS FLAG 10 (0-99); PLATELET COUNT 305 10^3/uL (150-400); RED BLOOD CELL COUNT 4.14 10^6/uL (4.18-5.33); RED CELL DISTRIBUTION WIDTH 19.4 % (11.5-15.2)
[2016-06-25 04:32] LABS: BASE EXCESS 3.4 mEq/L (-2.5-2.5); BICARBONATE 27 mEq/L (22-26); MEASURED OXYGEN SATURATION 98 % (92-95); PCO2 39 mmHg (34-38); PO2 121 mmHg (65-75); SIMV YES; TCO2 28 mEq/L (23-27)
[2016-06-25 04:33] LABS: END TIDAL CO2 32; O2 CONCENTRATIION 40 % (0-100); P/F RATIO 303 RATIO; PATIENT RATE 14; PRESSURE SUPPORT 7
[2016-06-25 04:36] LABS: INR 2.42 (0.83-1.16); PROTIME(PATIENT) 26.6 SEC (12.0-15.0)
[2016-06-25 04:42] LABS: ALANINE AMINOTRANSFERASE 367 IU/L (9-52); ALBUMIN 2.4 g/dL (3.5-5.0); ALKALINE PHOSPHATASE 182 IU/L (38-126); ANION GAP 10 mEq/L (8-16); BILIRUBIN-CONJUGATED 0.7 mg/dL (0.0-0.5); BILIRUBIN-UNCONJUGATED 0.3 mg/dL (0.0-1.1); CARBON DIOXIDE 31 mEq/l (22-31); CHLORIDE 103 mEq/L (97-110); CREATININE 1.7 mg/dL (0.6-1.0); GLOMERULAR FILTRATION RATE 29; GLUCOSE 142 mg/dL (70-100); POTASSIUM 3.7 mEq/L (3.5-5.2); SODIUM 144 mEq/L (134-144)
[2016-06-25 04:52] LABS: ASPARTATE AMINOTRANSFERASE 883 IU/L (14-46)
[2016-06-25] MEDS: PROPOFOL/EMULSION 100 ML IV SCH ×2 (05:47→17:17)
[2016-06-25] MEDS: CLINDAMYCIN 900 MG/DEXTROSE 50 ML IV SCH ×2 (06:23→14:23)
--- NOTE | 2016-06-25 07:43 | DX ---
Portable Chest, 6:14 AM History: Follow-up interstitial edema and left lower lung consolidation Comparison: Yesterday Findings: ET tube and right subclavian catheter remain in place. The heart remains enlarged. Pulmonar y edema pattern is improving. Dense left lower lobe consolidation remains. Right perihilar atelectasi s has improved. Haziness in the lower lung zones has increased and could be related to overlapping so ft tissues in this obese patient or pleural fluid. Impression: Improving pulmonary edema 2. Persistent left lower lobe consolidation (underlying pneumonia versus atelectasis)
[2016-06-25] MEDS: NOREPINEPHRINE BITARTRATE 4 MG in D5W 500 ML IV SCH ×2 (08:16→18:35)
[2016-06-25] MEDS: CEFEPIME HCL 2 GM in D5W 100 ML IV SCH ×2 (09:00→22:17)
[2016-06-25] MEDS ORDERED: ALLOPURINOL 100 MG TAB PO SCH (09:00)
[2016-06-25] MEDS: SENNOSIDES/DOCUSATE SODIUM TAB PO SCH ×2 (09:00→21:04)
[2016-06-25] MEDS: VENLAFAXINE HCL 25 MG TAB PO SCH (09:00)
[2016-06-25] MEDS: GABAPENTIN 300 MG CAP PO SCH (09:00)
--- NOTE | 2016-06-25 09:21 | SOAPPROG ---
SOAP Progress Note Assessment/Plan: Assessment: 75yo F admitted as a trauma after found down in prison. Hypoglycemic with BS 20 and large left orbital hematoma Further work-up reveals LLL pneumonia Intubated with minimal sedation in ICU Found to have reducible periumbilical hernia on exam. This is not high on the priority list at this time Surgery will sign off for now. Happy to re-consult if situation changes. Appreciate hospitalist and biomedical equipment technician management Seen with Dr. Mendoza O: intubated and minimally sedated in ICU. reacts when hernia deeply palpated S: comfortably sedated intubated [place] Reducible large periumbilical hernia, tender to deep palpation Severe peripheral edema 06/25/16 09:22 06/25/16 09:23 Objective: Vital Signs Temp Pulse Resp BP Pulse Ox 36.6 C 83 14 110/75 100 06/25/16 08:00 06/25/16 08:00 06/25/16 08:00 06/25/16 08:00 06/25/16 08:00 Microbiology 06/24/16 17:00 - Final Sputum, Induced/Suctioned Laboratory Results 06/25/16 04:00 06/25/16 04:00 06/24/16 06/25/16 06/26/16 05:59 05:59 05:59 Intake Total 2648 Output Total 550 Balance 2098 PT 26.6 SEC (12.0-15.0) H 06/25/16 04:00 INR 2.42 (0.83-1.16) H 06/25/16 04:00 ICD10 Worksheet Patient Problems: Problems Problem Status Diagnosed Head injury Acute Pneumonia Acute Sepsis Acute Altered mental status Acute Hyperkalemia Acute Nausea and vomiting Acute Palliative care encounter Acute Renal failure, acute on chronic Acute
--- NOTE | 2016-06-25 14:38 | PDINTPN ---
Dna Sequencing Associate Progress Note Assessment/Plan: Assessment: Acute respiratory failure. Secondary to pneumonia/influenza a. A bacterial process cannot be excluded. FiO2 has come down to 40% and blood gas currently looks good. Tamiflu to be started. On broad-spectrum antibiotics. Sepsis /hypotension: Secondary to 1. On norepinephrine to maintain mean arterial pressures greater than 65. Altered mental status. She remains unresponsive to voice and commands however she is moving everything. Anoxic insult cannot be excluded however there are many other causes for obtundation at this point including her illness, medications, etc. Morbid obesity. Decubitus ulcers, erosions. Related to her rectal area and urinary catheter. Present on admission. Wound Care to see when available. History of systemic hypertension, chronic indwelling urinary catheter, hydronephrosis with chronic renal insufficiency, etc. History of multiple drug allergies. DVT prophylaxis: Enoxaparin GI prophylaxis: Pepcid Metabolic: On replacement protocols Plan: Continue ventilatory support. Continue antibiotics. Start Tamiflu. Continue norepinephrine as needed. CVP is high so intravenous fluids should be given judiciously. Wound Care to see when available. Follow laboratory, blood gas, chest x-ray. 55 minutes of critical care time spent directly with the patient. OG tube personally placed. Radiologic studies personally reviewed. Subjective: sedated, on the ventilator. Moves all extremities to stimulation, reaches for tube. Does not open eyes, follow commands Objective: Vital Signs Temp Pulse Resp BP Pulse Ox 36.8 C 80 14 101/66 100 06/25/16 12:00 06/25/16 14:00 06/25/16 14:00 06/25/16 14:00 06/25/16 14:00 Microbiology 06/24/16 17:00 - Final Sputum, Induced/Suctioned Laboratory Results 06/25/16 04:00 06/25/16 04:00 06/24/16 06/25/16 06/26/16 05:59 05:59 05:59 Intake Total 2648 Output Total 550 Balance 2098 PT 26.6 SEC (12.0-15.0) H 06/25/16 04:00 INR 2.42 (0.83-1.16) H 06/25/16 04:00 Laboratory Tests 06/25/16 06/25/16 04:00 04:24 PT 26.6 H INR 2.42 H pCO2 39 H pO2 121 H ABG pH 7.46 H ABG Lactic Acid 2.1 H D O2 Concentration % 40 Actual Respiration Rate 14 Tidal Volume 600 PEEP 5 Pressure Support 7 Calcium 7.0 L Total Bilirubin 1.0 AST 883 H ALT 367 H Albumin 2.4 L CXR: Left lower lobe consolidation. Congestive heart failure improved. Large cardiac silhouette. Lines and tubes in good position. Laboratory Tests 06/25/16 12:30 Influenza A & B (PCR) POSITIVE FOR FLU A H Physical Exam - Physical Exam General Appearance: unresponsive, obese, other ( On ventilator) EENT: PERRL/EOMI, ET tube, other ( of the G-tube no in place), No normal ENT inspection ( Ecchymosis/swelling around left eye.) Neck: normal inspection ( large neck) Respiratory: decreased breath sounds, rales ( at bases), wheezing ( few wheezes present bilaterally, likely secondary to mucus.), No rhonchi ( coarse airway sounds) Cardiac/Chest: regular rate, rhythm ( Distant heart tones), other ( Subclavian central line in place on the right. CVP 16.) Abdomen: non-tender, soft, other (teresa obese), No normal bowel sounds ( decreased , present) Pelvic Exam: lesions ( Erosion in to soft tissues of the groin secondary to indwelling urinary catheter. Present on admission.), other ( Mchugh catheter in place) Rectal: other ( erosions and ulcerations present. Present on admission.), No normal exam Skin: normal color, warm/dry Extremities: swelling ( Very large legs with edema/ anasarca. Does not appear to be able to walk?) Neuro/Psych: no motor/sensory deficits ( Moves all extremities equally), No cognition abnormalities ( remains unresponsive but moves everything.) ICD10 Worksheet Patient Problems: Problems Problem Status Diagnosed Head injury Acute Pneumonia Acute Sepsis Acute Altered mental status Acute Hyperkalemia Acute Nausea and vomiting Acute Palliative care encounter Acute Renal failure, acute on chronic Acute
[2016-06-25] MEDS ORDERED: PROTOCOL CALCIUM 1 DOSE IV PRN (14:56)
[2016-06-25] MEDS ORDERED: PROTOCOL MAGNESIUM 1 DOSE IV PRN (14:56)
[2016-06-25] MEDS ORDERED: PROTOCOL K PHOSPHATE 1 DOSE IV PRN (14:56)
[2016-06-25] MEDS ORDERED: OSELTAMIVIR PHOSPHATE 75 MG CAP PO SCH (15:00)
[2016-06-25] MEDS ORDERED: LORazepam 1 MG TAB SL PRN (15:06)
[2016-06-25] MEDS ORDERED: ALBUTEROL 60 PUFFS/8 GM MDI IH PRN (15:06)
[2016-06-25] MEDS ORDERED: ACETAMINOPHEN 650 MG/20.3 ML UDCUP PO PRN (15:11)
[2016-06-25] MEDS: ENOXAPARIN 30 MG/0.3 ML SYR SC SCH ×2 (15:23→22:17)
[2016-06-25] MEDS: FAMOTIDINE 20 MG/NACL 50 ML IV SCH (15:24)
--- NOTE | 2016-06-25 15:56 | HOSPPROG ---
Hospitalist Progress Note Assessment/Plan: * Septic shock -still on Levophed * Influenza A -Tamiflu * Suspect secondary bacterial PNA - nosocomial -Cefepime, IV Vanco * Acute respiratory failure - vent * Morbid Obesity BMI 48 * Chronic venous stasis * Increased LFT - suspect due to sepsis/shock liver -check abd US * h/o PE/DVT/IVC filter * INR elevation - not on warfarin -hepatic failure vs. 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 Thomason ICU rounds - decided to check influenza as multiple patient infected from [facility] - Physical Exam Constitutional: no apparent distress, appears nourished, not in pain Cardiovascular: regular rate and rhythym, no murmur, rub, or gallop, edema (3-4+ ) Respiratory: no respiratory distress, no rales or rhonchi, clear to auscultation Gastrointestinal: normoactive bowel sounds, soft, non-tender abdomen, no palpable masses Skin: no rashes or abrasions, no fluctuance, no induration Neurologic: No AAOx3 Psychiatric: encephalopathic, No agitated ICD10 Worksheet Patient Problems: Problems Problem Status Diagnosed Head injury Acute Pneumonia Acute Sepsis Acute Altered mental status Acute Hyperkalemia Acute Nausea and vomiting Acute Palliative care encounter Acute Renal failure, acute on chronic Acute
--- NOTE | 2016-06-25 15:58 | GCON ---
[f rep st] CONSULTATION INFECTIOUS DISEASE CONSULTATION DATE OF CONSULTATION: 06/25/2016 REFERRING PHYSICIAN: Brenda Joyce MD REASON FOR CONSULTATION: Sepsis, pneumonia. For further evaluation and opinion. CHIEF COMPLAINT: Patient found down. HISTORY OF PRESENT ILLNESS: This is a 75-year-old female with a past medical history signi ficant for morbid obesity, urinary retention with hydronephrosis with chronic Mchugh catheter, history of DVT and pulmonary embolism status post IVC filter, chronic kidney disease. She resides at [facility]. She apparently was recently diagnosed with a urinary infection per [facility] around the 13 of June. Cultures grew out 50,000 colonies of Proteus mirabilis and 50,000 colonies of MSSA . Per the chart, it appears that she was started on ceftriaxone 1 g IM once a day for 3 days on the 18 of June and then clindamycin 300 mg p.o. q.6 hours for 7 days. She apparently had fallen out of her bed and was found on the floor. She developed a hematoma on the left eyebrow and was unresponsive. EMS was called. Blood cultures noted to be 23, per the medical records. She had a temperature of 38.4 yesterday. Her CO2 was 88%. Heart rate was 120. Initial blo od pressure 100/57. Blood cultures, 2 sets, were drawn. She had an elevated white blood cell count of 12.0 with a left shift. She had a urinalysis done which appeared unremarkable with urine WBCs of 1-3. She had multiple CAT scans done including a chest, abdomen, pelvis, and cervical spine. Pertinent fi ndings included chest left lower lobe airspace consolidation with air bronchograms with patchy nodula r airspace consolidation in the right lower lobe, posterior segment of the left upper lobe, and poste rior segment of the right upper lobe. Ground-glass opacities scattered throughout both right and lef t lungs. Numerous pulmonary nodules noted. She was given a dose of Invanz therapy yesterday at 11:56 a.m. after blood cultures x2 sets were draw n. Then after, she was started on vancomycin, cefepime, and clindamycin. History is obtained purely from medical records. Review of systems cannot be obtained as patient is currently intubated and se dated in the intensive care unit. PAST MEDICAL HISTORY: Significant for urinary retention with hydronephrosis with chronic Mchugh sen ter, hypertension, gout, morbid obesity, DVT and pulmonary embolism status post IVC filter, celiac di sease, chronic kidney disease, epidermoid cyst compressing the temporal lobe causing a seizure disord er. PAST SURGICAL HISTORY: Significant for IVC filter. ALLERGIES: Penicillin, sulfa, IV dye. Reaction to penicillin and sulfa are unknown at this time. R mary of medical records dating back to 2011 were not revealing as to her reaction to those medicatio ns. SOCIAL HISTORY: Per the medical records, no smoking, no alcohol. She resides at [facility]. She is nonambulatory at baseline. Her sister is power of immigration attorney. FAMILY HISTORY: Unobtainable. REVIEW OF SYSTEMS: Unobtainable. MEDICATIONS: As per MAR. PHYSICAL EXAMINATION: VITAL SIGNS: Temperature current 36.6, FIO2 is 40% on the vent. Respiratory rate 14. Heart rate 80. Blood pressure 101/66. GENERAL: Patient is in the intensive care unit int ubated and sedated. HEENT: Pupils are pinpoint bilaterally. She has a hematoma noted over the left eye. Slightly boggy in nature with ecchymosis. Oropharynx is not well visualized. She has an ET t ube in place. CARDIOVASCULAR: S1 and S2. Regular rate and rhythm. No murmurs appreciated. RESPIR ATORY: Some coarse breath sounds at the left base. ABDOMEN: Obese. Positive bowel sounds in all 4 quadrants. Soft, nontender, nondistended. Difficult to appreciate organomegaly. EXTREMITIES: She has evidence of swelling in bilateral lower extremities. MUSCULOSKELETAL: No obvious joint effusio ns. SKIN: Chronic venous stasis dermatitis bilaterally. LABS: White blood cell count is 11.8, hemoglobin 10.6, platelets 305, neutrophil count 76%. INR 2.4 . Venous lactic acid was 14.7 on admit. Chemistry: Sodium 144, potassium 3.7, chloride 103, bicarb 31, BUN is , creatinine 1.7. GFR is 29, AST 183, ALT 367, alk phos 192. Urinalysis: Urine WBCs 1-3, urine RBCs 1-3, urine blood 2+, urine protein 2+, leuko esterase negativ e, nitrates negative. Influenza A and B, PCR pending. Blood cultures x2 sets are pending. Appears to have been collected prior to the 1st dose of antibiotics. Sputum culture with 2+ polys, 1+ yeast, rare epithelial cells, 1+ monos, mixed oropharyngeal mike, 2 + Josefa albicans. Urine culture showing 10-20,000 Josefa albicans, 40-50,000 of 2 colony types. IMAGING: Imaging results have all been reviewed by me and are stated above. Chest x-ray from today: Slight improvement in pulmonary edema in general with left lower lobe consol idation noted. CT head with left periorbital hematoma. No fracture. ASSESSMENT: 1. Sepsis. 2. Left lower lobe pneumonia. 3. History of penicillin allergy of uncertain reaction. 4. Elevated LFTs. PLAN: The patient was recently on clindamycin up until yesterday and 3 days of ceftriaxone, ending o n the 20 of June. Now found with pneumonia. Possibly aspiration. Initial sputum cultures with out any organisms on the Gram stain and cultures showed mixed mike. We will discontinue clindamycin , as she has recently been on that. I do believe its adding additional coverage at this time. We wi ll continue with vancomycin and cefepime for now. Given history of seizure disorder, we will avoid u sing carbapenems. If no gram-positive cocci, particularly MRSA, is isolated in her blood cultures or her sputum cultures, will discontinue vancomycin. Await pending studies to further direct plan of care. Thank you very much for allowing us the opportunity to care for your patient in consultation. /[id number]/MODL
[2016-06-25] MEDS: GABAPENTIN 250 MG/5 ML 30 ML BOTTLE TUBE SCH ×2 (17:10→22:16)
[2016-06-25] MEDS: OSELTAMIVIR 6 MG/ML UDSYR TUBE SCH (17:10)
[2016-06-25] MEDS: VANCOMYCIN 1.25 GM in D5W 250 ML IV SCH (17:11)
[2016-06-25 18:53] LABS: POTASSIUM 3.1 mEq/L (3.5-5.2)
[2016-06-25] MEDS: clonazePAM 0.5 MG TAB TUBE SCH (21:03)
[2016-06-25] MEDS: VENLAFAXINE HCL 25 MG TAB TUBE SCH (21:04)
[2016-06-25] MEDS: fentaNYL/NACL 100 ML IV SCH (22:21)
[2016-06-26 04:57] LABS: % IMMATURE GRANULYOCYTES 0.6 % (0.0-1.1); ABSOLUTE IMMATURE GRANULOCYTES 0.08 10^3/uL (0.00-0.10); ABSOLUTE NRBC COUNT 0.02 10^3/uL (0-0.01); ADD DIFF? NO; ADD MORPH? NO; ADD SCAN? NO; ATYPICAL LYMPHOCYTE FLAG 70 (0-99); FRAGMENT RBC FLAG 20 (0-99); HEMATOCRIT 34.6 % (38.0-47.0); HEMOGLOBIN 10.5 g/dL (12.6-16.3); LEFT SHIFT FLG 0 (0-99); LIPEMIA HEMOLYSIS FLAG 80 (0-99); MEAN CELL HEMOGLOBIN CONCENTR. 30.3 g/dL (32.4-36.7); MEAN CELL VOLUME 85.6 fL (81.5-99.8); MEAN PLATELET VOLUME 10.2 fL (8.7-11.7); NRBC-AUTO% 0.2 % (0.0-0.2); PLATELET CLUMPS FLAG 0 (0-99); PLATELET COUNT 270 10^3/uL (150-400); RED BLOOD CELL COUNT 4.04 10^6/uL (4.18-5.33); RED CELL DISTRIBUTION WIDTH 19.5 % (11.5-15.2)
[2016-06-26 05:05] LABS: INR 1.64 (0.83-1.16); PROTIME(PATIENT) 19.5 SEC (12.0-15.0)
[2016-06-26 05:12] LABS: ALANINE AMINOTRANSFERASE 759 IU/L (9-52); ALBUMIN 2.3 g/dL (3.5-5.0); ALKALINE PHOSPHATASE 159 IU/L (38-126); ANION GAP 7 mEq/L (8-16); BILIRUBIN,TOTAL 0.9 mg/dL (0.1-1.4); CARBON DIOXIDE 32 mEq/l (22-31); CHLORIDE 101 mEq/L (97-110); CREATININE 1.6 mg/dL (0.6-1.0); GLOMERULAR FILTRATION RATE 32; GLUCOSE 123 mg/dL (70-100); MAGNESIUM 1.5 mg/dL (1.6-2.3); POTASSIUM 3.9 mEq/L (3.5-5.2); SODIUM 140 mEq/L (134-144); TOTAL PROTEIN 5.9 g/dL (6.3-8.2)
[2016-06-26 05:38] LABS: BASE EXCESS 3.3 mEq/L (-2.5-2.5); BICARBONATE 27 mEq/L (22-26); IONIZED CALCIUM 0.99 MMOL/L (1.12-1.30); MEASURED OXYGEN SATURATION 97 % (92-95); P/F RATIO 313 RATIO; PCO2 39 mmHg (34-38); PO2 94 mmHg (65-75); TCO2 28 mEq/L (23-27)
[2016-06-26 05:39] LABS: END TIDAL CO2 33; O2 CONCENTRATIION 30 % (0-100); PATIENT RATE 14; PIP 28.8; PRESSURE SUPPORT 7; SIMV YES
[2016-06-26] MEDS ORDERED: CALCIUM GLUCONATE 50 ML IV ONE (06:04)
[2016-06-26] MEDS ORDERED: POTASSIUM Cl (KCl) 50 ML IV ONE (06:50)
[2016-06-26] MEDS ORDERED: MAGNESIUM SULF 1 GM/DEXTROSE 100 ML IV ONE (06:50)
[2016-06-26 07:27] LABS: ASPARTATE AMINOTRANSFERASE 1687 IU/L (14-46)
[2016-06-26] MEDS: GABAPENTIN 250 MG/5 ML 30 ML BOTTLE TUBE SCH ×3 (08:04→20:41)
[2016-06-26] MEDS: OSELTAMIVIR 6 MG/ML UDSYR TUBE SCH (08:05)
[2016-06-26] MEDS: CEFEPIME HCL 2 GM in D5W 100 ML IV SCH ×2 (08:05→20:37)
[2016-06-26] MEDS: FAMOTIDINE 20 MG/NACL 50 ML IV SCH (08:05)
[2016-06-26] MEDS: SENNOSIDES/DOCUSATE SODIUM TAB PO SCH ×2 (08:05→20:39)
[2016-06-26] MEDS: VENLAFAXINE HCL 25 MG TAB TUBE SCH ×2 (08:05→20:39)
[2016-06-26] MEDS: ALLOPURINOL 100 MG TAB TUBE SCH (08:06)
[2016-06-26] MEDS: ENOXAPARIN 30 MG/0.3 ML SYR SC SCH ×2 (08:10→20:39)
--- NOTE | 2016-06-26 08:30 | DX ---
Portable AP chest. 06/26/2016 at 6:07 AM History: f/u Comparison study: June 25, 2016. Findings: Improving interstitial edema in the lung bases bilaterally, with persistent left lower lobe consolidation. Moderate cardiomegaly. Lines and tubes are unchanged. Impression: Improving interstitial edema, with persistent left lower lobe consolidation, edema versus pneumonia.
--- NOTE | 2016-06-26 08:43 | PCMIDPN ---
Assessment/Plan: Assessment/Plan: 1. Sepsis secondary to INfluenza A with possible concomitant bacterial pneumonia : - Started on tamiflu renally dosed yesterday -Also on empiric antibiotics with Vanco , Cefepime for now while cultures still in progress - vanco trough ordered for tomorrow. -LFt elevated likely secondary to acute events on presentation. -wbc still elevated. -continue droplet precautions -care coordinated with RN Meds tamiflu 30mg daily- 06/25/16 vanco 1.25gm daily- 06/24/16 cefepime 2g q12- 06/24/16 Subjective: Afebrile. Still not waking up per RN. ON pressors. Intubated. Objective: Vital Signs Temp Pulse Resp BP Pulse Ox 37.1 C 80 14 94/66 L 96 06/26/16 08:00 06/26/16 08:00 06/26/16 08:00 06/26/16 08:00 06/26/16 08:00 Microbiology 06/24/16 17:00 - Final Sputum, Induced/Suctioned Laboratory Results 06/26/16 04:45 06/26/16 04:45 06/25/16 06/26/16 06/27/16 05:59 05:59 05:59 Intake Total 2648 2848 Output Total 550 900 Balance 2098 1948 - Physical Exam General Appearance: other (intubated in icu. ecchymosis, swelling over left eye/ forehead.) EENT: ET Tube Respiratory: coarse breath sounds Cardiac/Chest: regular rate, rhythm Extremities: swelling Abdomen: normal bowel sounds, non-tender, soft, other (obese), No distended Skin: other (chronic venous stasis dermatitis of bilateral LE) ICD10 Worksheet Patient Problems: Problems Problem Status Diagnosed Head injury Acute Pneumonia Acute Sepsis Acute Altered mental status Acute Hyperkalemia Acute Nausea and vomiting Acute Palliative care encounter Acute Renal failure, acute on chronic Acute
--- NOTE | 2016-06-26 09:12 | US ---
Right upper quadrant Abdominal Ultrasound History: Elevated LFTs. Comparison: CT abdomen and pelvis, June 24, 2016.. Findings: The liver has normal echotexture and contour. There is no intrahepatic biliary dilatation. The common bile duct measures 2 mm and is normal. The gallbladder is surgically absent.. The right ki dney measures 10 cm. Small benign cyst in the upper pole the right kidney measuring 2 cm. Midline str uctures are obscured by bowel gas. Minimal perihepatic free fluid. Impression: Negative right upper quadrant sonogram. Cholecystectomy. Small right renal cyst..
--- NOTE | 2016-06-26 14:28 | WOCRNPDOC ---
RAYSHAWN Advanced Assessment Note - Skin Integrity Problem, Advanced Assess Right Posterior Labia Pressure Injury Dressing Type: Open to Air Yeni Wound Tissue: Raw, Swollen, Denuded Yeni Wound Swelling: Moderate Wound Bed Color: Yellow Wound Bed Constitution: Mixed Loose & Adhered Slough/Eschar Site Odor: Slight Pressure Injury Stage: Unstageable Pressure Injury Present on Admit: Yes (Noted ) Skin Integrity Problem Comment: Full-thickness wound noted on posterior aspect of R labia. Very difficult to visualize; patient had to be positioned on her R side to fully assess. Wound is presently slough-filled w/ friable margins. The most likely source of this injury is the patient's catheter tubing which was noted pressing upon this site, as well as several others extending from her labia and back across her buttocks. Site is far too moist and denuded to have dressing applied at this point. Catheter tubing wrapped w/ wash cloth and Interdry sheet in order to minimize both friction and pressure. dough catcher Ayanna visualized site, and is well-apprised of the need to keep tubing off patient's skin. This will be a challenge given patient's obesity and exisiting swelling of area. Right Anterior Labia Pressure Injury Dressing Type: Open to Air Yeni Wound Tissue: Erythema, Raw, Swollen, Denuded Yeni Wound Swelling: Mild Wound Bed Color: Red, Yellow Wound Bed Constitution: Smooth Tissue, Mixed Loose & Adhered Slough/Eschar Site Measurement - Head-to-Toe Length X Width X Depth (cm): 2cmx1.1cmx0.3cm Pressure Injury Stage: Unstageable Pressure Injury Present on Admit: Yes (Noted) Skin Integrity Problem Comment: Full-thickness injury noted on the patient's R upper labia. Presently wound is 95% slough, w/ 5% smooth tissue noted along proximal margin. This is an unstageable pressure injury r/t catheter tubing. Catheter tubing wrapped w/ washcloth and Interdry to alleviate pressure. This will be a difficult site to manage ongoing r/t pressure exerted by patient's groin and pannus. Generalized Buttock Incont Assoc Dermatitis Dressing Type: Open to Air Yeni Wound Tissue: Erythema, Raw, Swollen, Scaly (peeling) Wound Bed Color: Red Wound Edges: Irregular (friable) Skin Integrity Problem Comment: Raw, peeling, denuded skin noted across patient' s buttocks. This is consistent is appearance with severe incontinence- associated dermatitis. In addition, there are linear, shallow wounds extending across patient's R buttock, which could be indicative of pressure r/t to catheter tubing. At present, wounds noted to area are of mixed etiology, and I will wait to reassess in a few days.
--- NOTE | 2016-06-26 15:07 | PDINTPN ---
Branch Mechanic Progress Note Assessment/Plan: Assessment: Acute respiratory failure. Secondary to pneumonia/influenza a. A bacterial process cannot be excluded. FiO2 has come down to 30%. Blood gas fine. On Tamiflu and broad-spectrum antibiotics. Failed CPAP wean this morning, lasting only several minutes. Sepsis /hypotension: Secondary to 1. On norepinephrine to maintain mean arterial pressures greater than 65. CVP 12. Altered mental status. She remains unresponsive to voice and commands however she is moving everything. CT Head negative. Anoxic insult cannot be excluded however there are many other causes for obtundation at this point including her illness, medications, etc. Morbid obesity. Decubitus ulcers, erosions. Related to her rectal area and urinary catheter. Present on admission. Wound Care to evaluate. History of systemic hypertension, chronic indwelling urinary catheter, hydronephrosis with chronic renal insufficiency, etc. History of multiple drug allergies. DVT prophylaxis: Enoxaparin GI prophylaxis: Pepcid Metabolic: On replacement protocols Plan: Continue ventilatory support. CPAP trials when possible. Continue antibiotics and Tamiflu. Continue norepinephrine as needed for BP. CVP is high so intravenous fluids should be given judiciously. Wound Care to see. Follow laboratory, blood gas, chest x-ray. 45 minutes of critical care time spent directly with the patient. Discussed with respiratory, nursing, hospitalist, and the ICU multi disciplinary team. Subjective: Sedated, on the ventilator. Not responsive to questions or commands with sedation vacation. Does move all extremities, grimaces appropriately, etc Objective: Vital Signs Temp Pulse Resp BP Pulse Ox 36.9 C 82 15 108/62 93 06/26/16 12:00 06/26/16 14:00 06/26/16 14:00 06/26/16 14:00 06/26/16 14:00 Microbiology 06/24/16 17:00 - Final Sputum, Induced/Suctioned Sputum Culture - Final Josefa Albicans Laboratory Results 06/26/16 04:45 06/26/16 04:45 06/25/16 06/26/16 06/27/16 05:59 05:59 05:59 Intake Total 2648 2848 Output Total 550 900 Balance 2098 1948 PT 19.5 SEC (12.0-15.0) H 06/26/16 04:45 INR 1.64 (0.83-1.16) H 06/26/16 04:45 Laboratory Tests 06/26/16 06/26/16 04:45 05:32 PT 19.5 H INR 1.64 H pCO2 39 H pO2 94 H ABG pH 7.46 H ABG O2 Saturation 97 H O2 Concentration % 30 Actual Respiration Rate 14 Tidal Volume 600 PEEP 5 Pressure Support 7 Calcium 7.0 L Ionized Calcium 0.99 L Phosphorus 3.1 Magnesium 1.5 L AST 1687 H ALT 759 H Albumin 2.3 L CXR: Hazy right basilar infiltrate and dense retrocardiac infiltrate/ consolidation. Large heart. Lines and tubes in good position. Sputum culture: Mixed oral mike. Final. Josefa not a pathogen. Physical Exam - Physical Exam General Appearance: no apparent distress, obese, No alert EENT: PERRL/EOMI, ET tube, other (OG. Evolving ecchymosis related to the left eye and periorbital area), No scleral icterus (R), No scleral icterus (L) Neck: normal inspection (Large neck) Respiratory: lungs clear (Anteriorly), decreased breath sounds (At bases), rales (Present at bases, central congestion without markos rhonchi.) Cardiac/Chest: irregularly irregular Abdomen: non-tender, soft (Morbidly obese), No normal bowel sounds (Decreased, present) Pelvic Exam: other (Mchugh catheter in place. Erosion/ulceration not examined) Rectal: deferred (Wound Care to evaluate decubitus I and erosions) Skin: normal color, warm/dry Extremities: pedal edema (2+ chronic edema and swelling of the lower extremities.) Neuro/Psych: no motor/sensory deficits (Moves all extremities equally), cognition abnormalities (Unresponsive to questions and commands even when sedation is off.) ICD10 Worksheet Patient Problems: Problems Problem Status Diagnosed Head injury Acute Pneumonia Acute Sepsis Acute Altered mental status Acute Hyperkalemia Acute Nausea and vomiting Acute Palliative care encounter Acute Renal failure, acute on chronic Acute
--- NOTE | 2016-06-26 15:10 | HOSPPROG ---
Hospitalist Progress Note Assessment/Plan: * Septic shock -wean Levophed * Influenza A -Tamiflu * Suspect secondary bacterial PNA - nosocomial -Cefepime, IV Vanco * Acute respiratory failure - vent * Morbid Obesity BMI 48 * Chronic venous stasis - very volume overloaded -start diuresis when off pressors * Increased LFT - due to sepsis/shock liver * h/o PE/DVT/IVC filter * INR elevation - not on warfarin -hepatic failure vs. 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 -gabapentin * Pressure ulcers (POA) -wound care Subjective: No new issues, still encephalopathic, on low dose pressors Objective: Vital Signs Temp Pulse Resp BP Pulse Ox 36.9 C 82 15 108/62 93 06/26/16 12:00 06/26/16 14:00 06/26/16 14:00 06/26/16 14:00 06/26/16 14:00 Microbiology 06/24/16 17:00 - Final Sputum, Induced/Suctioned Sputum Culture - Final Josefa Albicans Laboratory Results 06/26/16 04:45 06/26/16 04:45 06/25/16 06/26/16 06/27/16 05:59 05:59 05:59 Intake Total 2648 2848 Output Total 550 900 Balance 2098 1948 PT 19.5 SEC (12.0-15.0) H 06/26/16 04:45 INR 1.64 (0.83-1.16) H 06/26/16 04:45 IV fentanyl, IV propofol for sedation d/w Dr Onesimo Thomason ICU rounds - Physical Exam Constitutional: no apparent distress, appears nourished, not in pain Cardiovascular: regular rate and rhythym, no murmur, rub, or gallop, edema (4+ to lower abdominal wall) Respiratory: no respiratory distress, no rales or rhonchi, clear to auscultation Gastrointestinal: normoactive bowel sounds, soft, non-tender abdomen, no palpable masses Skin: no rashes or abrasions, no fluctuance, no induration Neurologic: other (intubated and sedated) Psychiatric: encephalopathic, other (minimally responsive on vent, withdraws to pain), No agitated ICD10 Worksheet Patient Problems: Problems Problem Status Diagnosed Head injury Acute Pneumonia Acute Sepsis Acute Altered mental status Acute Hyperkalemia Acute Nausea and vomiting Acute Palliative care encounter Acute Renal failure, acute on chronic Acute
[2016-06-26] MEDS: VANCOMYCIN 1.25 GM in D5W 250 ML IV SCH (15:47)
[2016-06-26] MEDS: NOREPINEPHRINE BITARTRATE 4 MG in D5W 500 ML IV SCH (15:48)
[2016-06-26] MEDS: PROPOFOL/EMULSION 100 ML IV SCH ×2 (15:54→21:31)
[2016-06-26 17:59] LABS: POTASSIUM 3.5 mEq/L (3.5-5.2)
[2016-06-26] MEDS: POTASSIUM Cl (KCl) 50 ML IV SCH ×3 (20:37→22:06)
[2016-06-26] MEDS: clonazePAM 0.5 MG TAB TUBE SCH (20:38)
[2016-06-26] MEDS: fentaNYL/NACL 100 ML IV SCH (21:02)
[2016-06-26] MEDS ORDERED: DOCUSATE SODIUM 100 MG CAP PO SCH (21:30)
[2016-06-26] MEDS: D5W NS 1,000 ML IV SCH ×2 (21:31→22:06)
[2016-06-26] MEDS: SENNOSIDES 17.6 MG/10 ML UDL PO SCH (21:32)
[2016-06-27] MEDS: DOCUSATE SODIUM 100 MG CAP PO SCH ×3 (01:14→21:00)
[2016-06-27] MEDS ORDERED: PETROLAT,WHT/MIN OIL/SOD CHL 3.5 GM OPHT.OINT EACHEYE PRN (02:32)
[2016-06-27] MEDS: ORAL BALANCE GEL TUBE PO PRN (03:42)
[2016-06-27 04:15] LABS: IONIZED CALCIUM 1.08 MMOL/L (1.12-1.30)
[2016-06-27 04:25] LABS: % IMMATURE GRANULYOCYTES 0.8 % (0.0-1.1); ABSOLUTE IMMATURE GRANULOCYTES 0.05 10^3/uL (0.00-0.10); ADD DIFF? NO; ADD MORPH? NO; ADD SCAN? NO; ATYPICAL LYMPHOCYTE FLAG 70 (0-99); FRAGMENT RBC FLAG 20 (0-99); HEMATOCRIT 33.1 % (38.0-47.0); HEMOGLOBIN 9.7 g/dL (12.6-16.3); LEFT SHIFT FLG 0 (0-99); LIPEMIA HEMOLYSIS FLAG 70 (0-99); MEAN CELL HEMOGLOBIN 25.2 pg (27.9-34.1); MEAN CELL HEMOGLOBIN CONCENTR. 29.3 g/dL (32.4-36.7); PLATELET CLUMPS FLAG 20 (0-99); PLATELET COUNT 216 10^3/uL (150-400); RED BLOOD CELL COUNT 3.85 10^6/uL (4.18-5.33); RED CELL DISTRIBUTION WIDTH 19.5 % (11.5-15.2)
[2016-06-27 04:31] LABS: ALANINE AMINOTRANSFERASE 607 IU/L (9-52); ALBUMIN 2.2 g/dL (3.5-5.0); ALKALINE PHOSPHATASE 156 IU/L (38-126); ANION GAP 7 mEq/L (8-16); BILIRUBIN,TOTAL 0.7 mg/dL (0.1-1.4); BILIRUBIN-CONJUGATED 0.7 mg/dL (0.0-0.5); CALCIUM 7.2 mg/dL (8.5-10.4); CARBON DIOXIDE 29 mEq/l (22-31); CHLORIDE 102 mEq/L (97-110); CREATININE 1.5 mg/dL (0.6-1.0); GLOMERULAR FILTRATION RATE 34; GLUCOSE 108 mg/dL (70-100); MAGNESIUM 1.7 mg/dL (1.6-2.3); POTASSIUM 3.8 mEq/L (3.5-5.2); SODIUM 138 mEq/L (134-144); TOTAL PROTEIN 5.8 g/dL (6.3-8.2)
[2016-06-27 04:33] LABS: INR 1.34 (0.83-1.16); PROTIME(PATIENT) 16.6 SEC (12.0-15.0)
[2016-06-27 04:42] LABS: ASPARTATE AMINOTRANSFERASE 1132 IU/L (14-46)
[2016-06-27] MEDS ORDERED: CALCIUM GLUCONATE 50 ML IV ONE (04:45)
[2016-06-27] MEDS ORDERED: POTASSIUM Cl (KCl) 50 ML IV ONE (04:47)
[2016-06-27] MEDS ORDERED: MAGNESIUM SULF 1 GM/DEXTROSE 100 ML IV ONE (04:47)
[2016-06-27 05:20] LABS: BASE EXCESS 1.7 mEq/L (-2.5-2.5); BICARBONATE 27 mEq/L (22-26); MEASURED OXYGEN SATURATION 96 % (92-95); PCO2 42 mmHg (34-38); PO2 84 mmHg (65-75); TCO2 28 mEq/L (23-27)
[2016-06-27 05:26] LABS: SIMV YES
[2016-06-27 05:28] LABS: O2 CONCENTRATIION 30 % (0-100); P/F RATIO 280 RATIO; PATIENT RATE 12; PIP 29; PRESSURE SUPPORT 7
--- NOTE | 2016-06-27 08:59 | PDINTPN ---
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 Secondary to pneumonia/influenza a. A bacterial process cannot be excluded. FiO2 has come down to 30%. Blood gas fine. On Tamiflu and broad-spectrum antibiotics. Failed CPAP wean again this morning -continue mech vent for now. Will discuss with family * Sepsis /hypotension: Secondary to 1. On norepinephrine to maintain mean arterial pressures greater than 65. CVP 12. * Altered mental status. She remains unresponsive to voice and commands however she is moving everything. CT Head negative. Anoxic insult likely * Morbid obesity. * Decubitus ulcers, erosions. Related to her rectal area and urinary catheter. Present on admission. Wound Care to evaluate. * History of systemic hypertension, chronic indwelling urinary catheter, hydronephrosis with chronic renal insufficiency, etc. * History of multiple drug allergies. * DVT prophylaxis: Enoxaparin * GI prophylaxis: Pepcid * Metabolic: On replacement protocols Case discussed with RT and Nursing 35 min of critical care time spent with patient. Subjective: Obtunded Objective: Vital Signs Temp Pulse Resp BP Pulse Ox 36.4 C 79 11 L 101/63 100 06/27/16 05:00 06/27/16 08:00 06/27/16 08:00 06/27/16 08:00 06/27/16 08:00 Microbiology 06/24/16 17:00 - Final Sputum, Induced/Suctioned Sputum Culture - Final Josefa Albicans Laboratory Results 06/27/16 03:50 06/27/16 03:50 06/26/16 06/27/16 06/28/16 05:59 05:59 05:59 Intake Total 2848 3080 370 Output Total 900 1200 40 Balance 1948 1880 330 PT 16.6 SEC (12.0-15.0) H 06/27/16 03:50 INR 1.34 (0.83-1.16) H 06/27/16 03:50 Laboratory Results 06/27/16 03:50 06/27/16 03:50 06/27/16 06/27/16 05:03 03:50 PT 16.6 H SEC (12.0 - 15.0) INR 1.34 H (0.83 - 1.16) Patient Temperature 35.0 DEGREES pCO2 42 H mmHg (34 - 38) pO2 84 H mmHg (65 - 75) Total CO2 28 H mEq/L (23 - 27) ABG pH 7.41 (7.35 - 7.45) ABG PO2/FiO2 Ratio 280 RATIO ABG O2 Saturation 96 H % (92 - 95) ABG Base Excess 1.7 mEq/L (-2.5 - 2.5) O2 Concentration % 30 % Actual Respiration Rate 12 Set Respiration Rate 12 SIMV YES Tidal Volume 600 PEEP 5 Peak Inspir Pressure 29 Pressure Support 7 Calcium 7.2 L mg/dL (8.5 - 10.4) Ionized Calcium 1.08 L MMOL/L (1.12 - 1.30) Phosphorus 3.4 mg/dL (2.5 - 4.5) Magnesium 1.7 mg/dL (1.6 - 2.3) Total Bilirubin 0.7 mg/dL (0.1 - 1.4) Conjugated Bilirubin 0.7 H mg/dL (0.0 - 0.5) Unconjugated Bilirubin 0.0 mg/dL (0.0 - 1.1) AST 1132 H IU/L (14 - 46) ALT 607 H IU/L (9 - 52) Alkaline Phosphatase 156 H IU/L (38 - 126) Total Protein 5.8 L g/dL (6.3 - 8.2) Albumin 2.2 L g/dL (3.5 - 5.0) 06/24/16 17:00 - Final Sputum, Induced/Suctioned Sputum Culture - Final Josefa Albicans 06/24/16 10:38 Urine Culture - Final Urine,Catheterized Josefa Albicans Enterococcus Faecalis CXR-reviewed by myself. ETT okay. Increased interstitial markings. No ptx - Time Spent With Patient Time Spent With Patient: 35 Physical Exam - Physical Exam General Appearance: no apparent distress, No alert EENT: PERRL/EOMI, ET tube, other (hematoma over left eye) Neck: non-tender, full range of motion, supple, normal inspection Respiratory: decreased breath sounds, No respiratory distress, No wheezing Cardiac/Chest: normal peripheral pulses, regular rate, rhythm, systolic murmur Peripheral Pulses: 2+: carotid (R), carotid (L), femoral (R), femoral (L), dorsalis-pedis (R), dorsalis-pedis (L) Abdomen: normal bowel sounds, non-tender, soft Pelvic Exam: deferred Rectal: deferred Skin: normal color, warm/dry Extremities: non-tender Neuro/Psych: No alert, No oriented x 3 ICD10 Worksheet Patient Problems: Problems Problem Status Diagnosed Head injury Acute Pneumonia Acute Sepsis Acute Altered mental status Acute Hyperkalemia Acute Nausea and vomiting Acute Palliative care encounter Acute Renal failure, acute on chronic Acute
--- NOTE | 2016-06-27 09:13 | DX ---
Portable AP Upright Chest, 6:25 AM on June 27, 2016 Clinical History: 75-year-old female in the ICU for follow up of respiratory status. Comparison Study: Chest, dated June 26, 2016. Findings: The patient is slightly rotated to the right. The numerous interventional and monitoring de vices are stable in position. The cardiac silhouette remains enlarged. There is some peribronchial th ickening and pulmonary vascular congestion. There is persistent left retrocardiac pleural parenchymal consolidation, and trace blunting of the right costophrenic angle. Impression: Radiographically similar to June 26, 2016.
[2016-06-27] MEDS: ENOXAPARIN 30 MG/0.3 ML SYR SC SCH ×2 (09:41→21:00)
[2016-06-27] MEDS: CEFEPIME HCL 2 GM in D5W 100 ML IV SCH ×2 (09:41→21:26)
[2016-06-27] MEDS: OSELTAMIVIR 6 MG/ML UDSYR TUBE SCH (09:41)
[2016-06-27] MEDS: VENLAFAXINE HCL 25 MG TAB TUBE SCH ×2 (09:41→21:01)
[2016-06-27] MEDS: FAMOTIDINE 20 MG/NACL 50 ML IV SCH (09:41)
[2016-06-27] MEDS: SENNOSIDES 17.6 MG/10 ML UDL PO SCH ×2 (09:42→21:26)
[2016-06-27] MEDS: ALLOPURINOL 100 MG TAB TUBE SCH (09:46)
[2016-06-27] MEDS: GABAPENTIN 250 MG/5 ML 30 ML BOTTLE TUBE SCH ×3 (09:49→21:02)
--- NOTE | 2016-06-27 12:07 | PCMIDPN ---
Assessment/Plan: Assessment: Influenza A and septic shock. Patient is off pressors. She has evidence for shock liver and may have suffered an anoxic brain injury during her hypertensive episode at the [facility] facility and prior to resuscitation. Covered for bacterial superinfection with vancomycin and cefepime. Urinalysis and culture more consistent with chronic colonization rather than infection. Plan: 1. Continue Tamiflu. 2. Continue cefepime and vancomycin. 06/27/16 17:27 Subjective: Patient is intubated and sedated. She responds with agitation when the sedation is decreased. She failed CPAP trials both overnight and this morning. Objective: Tamiflu # 3 Vancomycin # 3 Cefepime # 3 Vital Signs Temp Pulse Resp BP Pulse Ox 36.4 C 83 13 107/79 99 06/27/16 05:00 06/27/16 12:00 06/27/16 12:00 06/27/16 11:00 06/27/16 11:00 Microbiology 06/24/16 17:00 - Final Sputum, Induced/Suctioned Sputum Culture - Final Josefa Albicans Laboratory Results 06/27/16 03:50 06/27/16 03:50 06/26/16 06/27/16 06/28/16 05:59 05:59 05:59 Intake Total 2848 3080 370 Output Total 900 1200 130 Balance 1948 1880 240 - Physical Exam General Appearance: WD/WN, toxic, No alert Respiratory: lungs clear, other (Mechanical breathing), No normal breath sounds Cardiac/Chest: regular rate, rhythm, No tachycardia, No irregularly irregular Extremities: normal inspection Skin: normal color, warm/dry, No rash ICD10 Worksheet Patient Problems: Problems Problem Status Diagnosed Head injury Acute Pneumonia Acute Sepsis Acute Altered mental status Acute Hyperkalemia Acute Nausea and vomiting Acute Palliative care encounter Acute Renal failure, acute on chronic Acute
--- NOTE | 2016-06-27 13:40 | HOSPPROG ---
Hospitalist Progress Note Assessment/Plan: * Septic shock -wean Levophed * Influenza A -Tamiflu * Suspect secondary bacterial PNA - nosocomial -Cefepime, IV Vanco * Acute respiratory failure - vent * Morbid Obesity BMI 48 * Chronic venous stasis - very volume overloaded -start diuresis - IV lasix * Increased LFT - due to sepsis/shock liver * h/o PE/DVT/IVC filter * INR elevation - not on warfarin -hepatic failure vs. 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 Not weaning from vent Objective: Vital Signs Temp Pulse Resp BP Pulse Ox 36.4 C 83 13 107/68 100 06/27/16 05:00 06/27/16 13:00 06/27/16 13:00 06/27/16 13:00 06/27/16 13:00 Microbiology 06/24/16 17:00 - Final Sputum, Induced/Suctioned Sputum Culture - Final Josefa Albicans Laboratory Results 06/27/16 03:50 06/27/16 03:50 06/26/16 06/27/16 06/28/16 05:59 05:59 05:59 Intake Total 2848 3080 370 Output Total 900 1200 175 Balance 1948 1880 195 PT 16.6 SEC (12.0-15.0) H 06/27/16 03:50 INR 1.34 (0.83-1.16) H 06/27/16 03:50 sedation - IV fentanyl, Iv propafol d/w Dr. Franco ICU rounds - may be heading for trach - he will discuss with family - Physical Exam Constitutional: no apparent distress, appears nourished, not in pain Cardiovascular: regular rate and rhythym, no murmur, rub, or gallop, edema (4+) Respiratory: no respiratory distress, no rales or rhonchi, clear to auscultation Gastrointestinal: normoactive bowel sounds, soft, non-tender abdomen, no palpable masses Skin: no rashes or abrasions, no fluctuance, no induration Neurologic: No AAOx3 Psychiatric: encephalopathic, other (intubated, sedated), No interacting appropriately ICD10 Worksheet Patient Problems: Problems Problem Status Diagnosed Head injury Acute Pneumonia Acute Sepsis Acute Altered mental status Acute Hyperkalemia Acute Nausea and vomiting Acute Palliative care encounter Acute Renal failure, acute on chronic Acute
[2016-06-27] MEDS: FUROSEMIDE 40 MG/4 ML VIAL IVP SCH ×2 (14:17→21:01)
[2016-06-27] MEDS: PROPOFOL/EMULSION 100 ML IV SCH (15:00)
[2016-06-27] MEDS: fentaNYL/NACL 100 ML IV SCH (15:00)
[2016-06-27] MEDS: VANCOMYCIN 1.25 GM in D5W 250 ML IV SCH (16:36)
[2016-06-27 18:34] LABS: POTASSIUM 3.5 mEq/L (3.5-5.2)
[2016-06-27] MEDS: clonazePAM 0.5 MG TAB TUBE SCH (21:00)
[2016-06-27] MEDS: POTASSIUM Cl (KCl) 50 ML IV SCH ×3 (21:26→23:12)
[2016-06-28] MEDS ORDERED: MAGNESIUM SULF 1 GM/DEXTROSE 100 ML BAG IV ONE (05:48)
[2016-06-28] MEDS ORDERED: POTASSIUM Cl (KCl) 10 MEQ/50 ML BAG IV ONE (05:50)
[2016-06-28 06:19] LABS: ANION GAP 7 mEq/L (8-16); CALCIUM 7.4 mg/dL (8.5-10.4); CARBON DIOXIDE 30 mEq/l (22-31); CHLORIDE 101 mEq/L (97-110); CREATININE 1.4 mg/dL (0.6-1.0); GLOMERULAR FILTRATION RATE 37; GLUCOSE 104 mg/dL (70-100); MAGNESIUM 1.7 mg/dL (1.6-2.3); POTASSIUM 3.9 mEq/L (3.5-5.2); SODIUM 138 mEq/L (134-144)
[2016-06-28 06:59] LABS: % IMMATURE GRANULYOCYTES 0.4 % (0.0-1.1); ABSOLUTE IMMATURE GRANULOCYTES 0.03 10^3/uL (0.00-0.10); ADD DIFF? NO; ADD MORPH? YES; ADD SCAN? YES; HEMATOCRIT 32.3 % (38.0-47.0); HEMOGLOBIN 9.4 g/dL (12.6-16.3); LEFT SHIFT FLG 0 (0-99); LIPEMIA HEMOLYSIS FLAG 70 (0-99); MEAN CELL HEMOGLOBIN 25.5 pg (27.9-34.1); MEAN CELL HEMOGLOBIN CONCENTR. 29.1 g/dL (32.4-36.7); MEAN CELL VOLUME 87.8 fL (81.5-99.8); MEAN PLATELET VOLUME 10.3 fL (8.7-11.7); PLATELET CLUMPS FLAG 40 (0-99); PLATELET COUNT 201 10^3/uL (150-400); RED BLOOD CELL COUNT 3.68 10^6/uL (4.18-5.33); RED CELL DISTRIBUTION WIDTH 19.2 % (11.5-15.2)
[2016-06-28 07:00] LABS: ATYPICAL LYMPHOCYTE FLAG 110 (0-99); FRAGMENT RBC FLAG 190 (0-99)
[2016-06-28] MEDS ORDERED: CALCIUM GLUCONATE 1 GM in D5W 50 ML IV ONE (07:00)
[2016-06-28] MEDS ORDERED: MAGNESIUM SULF 1 GM/DEXTROSE 100 ML IV ONE (07:00)
[2016-06-28] MEDS ORDERED: POTASSIUM Cl (KCl) 50 ML IV ONE (07:00)
[2016-06-28 07:26] LABS: SCAN NEGATIVE
[2016-06-28 07:27] LABS: GIANT PLATELETS PRESENT; HYPOCHROMIA 1+; MACROCYTES 1+; PLATELET ESTIMATE ADEQUATE (ADEQ)
[2016-06-28 07:33] LABS: BASE EXCESS 1.3 mEq/L (-2.5-2.5); BICARBONATE 26 mEq/L (22-26); MEASURED OXYGEN SATURATION 98 % (92-95); PCO2 44 mmHg (34-38); PO2 119 mmHg (65-75); TCO2 28 mEq/L (23-27)
[2016-06-28 07:46] LABS: CPAP YES
[2016-06-28 07:47] LABS: END TIDAL CO2 37; O2 CONCENTRATIION 40 % (0-100); P/F RATIO 298 RATIO; PATIENT RATE 18
[2016-06-28 07:51] LABS: PRESSURE SUPPORT 7
[2016-06-28 07:52] LABS: IONIZED CALCIUM 1.08 MMOL/L (1.12-1.30)
[2016-06-28] MEDS: FUROSEMIDE 40 MG/4 ML VIAL IVP SCH ×3 (08:35→20:59)
--- NOTE | 2016-06-28 08:41 | PDINTPN ---
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 -not ready for extubation secondary to diminished MS * Pneumonia/influenza a. A bacterial process cannot be excluded. On Tamiflu and broad-spectrum antibiotics. * Sepsis /hypotension-off pressors * Altered mental status. She remains unresponsive to voice and commands however she is moving everything. CT Head negative. Anoxic insult likely * Morbid obesity. * Massive fluid overload-continue diurese -check ECHO * Decubitus ulcers, erosions. Related to her rectal area and urinary catheter. Present on admission. Wound Care to evaluate. * History of systemic hypertension, chronic indwelling urinary catheter, hydronephrosis with chronic renal insufficiency, etc. * History of multiple drug allergies. * DVT prophylaxis: Enoxaparin * GI prophylaxis: Pepcid * Metabolic: On replacement protocols Case discussed with RT and Nursing 35 min of critical care time spent with patient. Subjective: Obtunded Objective: Vital Signs Temp Pulse Resp BP Pulse Ox 36.4 C 78 12 114/64 100 06/28/16 01:50 06/28/16 01:50 06/28/16 01:50 06/28/16 01:50 06/28/16 01:50 Laboratory Results 06/28/16 03:45 06/28/16 03:45 06/27/16 06/28/16 06/29/16 05:59 05:59 05:59 Intake Total 3080 2111.3 Output Total 1200 1425 Balance 1880 686.3 PT 16.6 SEC (12.0-15.0) H 06/27/16 03:50 INR 1.34 (0.83-1.16) H 06/27/16 03:50 Laboratory Results 06/28/16 03:45 06/28/16 03:45 06/28/16 06/28/16 06/28/16 05:14 03:45 03:45 Puncture Site RIGHT RADIAL Patient Temperature 36.4 DEGREES DEGREES pCO2 44 mmHg H mmHg (34 - 38) pO2 119 mmHg H mmHg (65 - 75) Total CO2 28 mEq/L H mEq/L (23 - 27) ABG pH 7.39 (7.35 - 7.45) ABG PO2/FiO2 Ratio 298 RATIO RATIO ABG O2 Saturation 98 % H % (92 - 95) ABG Base Excess 1.3 mEq/L mEq/L (-2.5 - 2.5) O2 Concentration % 40 % % Actual Respiration Rate 18 End Tidal CO2 37 PEEP 5 Pressure Support 7 CPAP YES Calcium 7.4 mg/dL L mg/dL (8.5 - 10.4) Ionized Calcium 1.10 MMOL/L L MMOL/L 1.08 MMOL/L L MMOL/L (1.12 - 1.30) (1.12 - 1.30) Phosphorus 3.7 mg/dL mg/dL (2.5 - 4.5) Magnesium 1.7 mg/dL mg/dL (1.6 - 2.3) - Time Spent With Patient Time Spent With Patient: 35 Physical Exam - Physical Exam General Appearance: no apparent distress, No alert EENT: PERRL/EOMI, normal ENT inspection, ET tube Neck: non-tender, full range of motion, supple, normal inspection Respiratory: crackles (few), No respiratory distress, No stridor, No wheezing Cardiac/Chest: normal peripheral pulses, regular rate, rhythm, systolic murmur Abdomen: normal bowel sounds, non-tender, soft Pelvic Exam: deferred Rectal: deferred Skin: normal color, warm/dry Extremities: pedal edema (4+) Neuro/Psych: No alert ICD10 Worksheet Patient Problems: Problems Problem Status Onset Head injury Acute Pneumonia Acute Sepsis Acute Altered mental status Acute Hyperkalemia Acute Nausea and vomiting Acute Palliative care encounter Acute Renal failure, acute on chronic Acute
[2016-06-28] MEDS: DOCUSATE SODIUM 100 MG CAP PO SCH ×2 (08:49→21:00)
[2016-06-28] MEDS: SENNOSIDES 17.6 MG/10 ML UDL PO SCH ×2 (08:49→21:00)
[2016-06-28] MEDS: CEFEPIME HCL 2 GM in D5W 100 ML IV SCH ×2 (08:49→20:59)
[2016-06-28] MEDS: ENOXAPARIN 30 MG/0.3 ML SYR SC SCH ×2 (08:49→21:10)
[2016-06-28] MEDS: FAMOTIDINE 20 MG/NACL 50 ML IV SCH (08:49)
[2016-06-28] MEDS: OSELTAMIVIR 6 MG/ML UDSYR TUBE SCH ×2 (08:49→20:59)
--- NOTE | 2016-06-28 11:20 | ECHO ---
[id number] + + [address] : : [place] [address] : : [phone] + + Adult Echocardiographic Report + --+ :Name: JADE GARCIA LStudy Date: 06/28/2016 10:37 AM : : Hospital Admission Number: [id number] Location: 2 50: :: 1940 Gender: Female Height: 65 in : :Age: 75 yrs Race: WH Weight: 317 lb : :Reason For Study: Eval LV Fx : : BSA: 2.4 meters2 : :History: Intubated, Edema : + --+ MMode/2D Measurements \T\ Calculations IVSd: 1.1 cm LVIDd: 5.6 cm FS: 24.0 % MV Diam: 3.9 cm LVPWd: 1.2 cm LVIDs: 4.2 cm EDV(Teich): 152.6 ml ESV(Teich): 80.6 ml EF(Teich): 47.2 % Ao root diam: LVOT diam: 2.0 cmLVLd ap4: 8.3 cm SV(MOD-sp4): 2.9 cm LVOT area: EDV(MOD-sp4): 54.0 ml ACS: 1.6 cm 3.1 cm2 119.0 ml LVLs ap4: 7.6 cm ESV(MOD-sp4): 65.0 ml EF(MOD-sp4): 45.4 % Normal Measurement Values: + + :LVIDd (3.5-5.7cm) IVSd (0.6-1.1cm) LVPWd (0.6-1.1cm) Aortic Root (2.0-3.7cm)Left Atrium (1.5-4.0cm): :LV Vol(d) (76-115ml) LV Vol(s) (29-48ml) Ejec Fraction (50-65%)PV Crow (0.6- 1.2m/s) TV Crow (0.4-1.0m/s) : :MV E Crow (0.8-1.0m/s)MV A Crow (0.3-1.0m/s)LVOT Crow (0.7-1.2m/s) Asc Ao Crow ( 0.9-1.8m/s) : + + Doppler Measurements \T\ Calculations MV E max crow: MV V2 max: Ao V2 max: LV V1 mean P.8 cm/sec 136.7 cm/sec 116.1 cm/sec 1.0 mmHg MV A max crow: MV max P.5 mmHg Ao max P.4 mmHgLV V1 mean: 58.7 cm/sec MV V2 mean: Ao mean P.0 cm/sec MV E/A: 2.2 53.6 cm/sec 3.5 mmHg LV V1 VTI: MV mean P.7 mmHg Ao V2 mean: 15.7 cm MV V2 VTI: 31.0 cm 88.0 cm/sec MV area (1 diam): Ao V2 VTI: 21.7 cm 12.0 cm2 NAZ(I,D): 2.3 cm2 MVA(VTI): 1.6 cm2 MV Flow area(1diam): 12.0 cm2 MR max crow: MR(RF 1 diam): SV(MV 1 diam): PA V2 max: 534.7 cm/sec 16.8 % 370.6 ml 69.2 cm/sec MR max PG: SI(MV 1 diam): PA max P.4 mmHg 154.0 ml/m2 1.9 mmHg SV(LVOT): 49.4 ml TR max crow: RF(MV,Ao)(1 diam): 317.6 cm/sec 0.61 TR max PG: RF(MV,LVOT)(1diam): 40.4 mmHg 0.87 RAP systole: 10.0 mmHg RVSP(TR): 50.4 mmHg Left Ventricle The left ventricle is normal in size. There is normal left ventricular wall thickness. There is Doppler evidence for diastolic dysfunction. Ejection Fraction = 50%. Flattened septum is consistent with RV pressure/volume overload. There is septal hypokinesis. Right Ventricle The right ventricle is mildly dilated. The right ventricular systolic function is mildly reduced. Atria The left atrium is moderate to severely dilated. The right atrium is mildly dilated. Mitral Valve There is no mitral valve stenosis. There is moderate to severe mitral regurgitation. Tricuspid Valve Normal tricuspid valve. There is moderate tricuspid regurgitation. Right ventricular systolic pressure is 50mmHg. There is Doppler evidence for moderate pulmonary hypertension. Aortic Valve There is no aortic stenosis. There is no aortic insufficiency. Pulmonic Valve The pulmonic valve is normal in structure and function. There is no pulmonic valvular regurgitation. Great Vessels The aortic root is normal size. Pericardium/Pleural There is no pericardial effusion. There is a moderate pleural effusion. Conclusion A complete two-dimensional transthoracic echocardiogram was performed (2D, M-mode, Doppler and color flow Doppler). There is Doppler evidence for diastolic dysfunction. Ejection Fraction = 50%. Flattened septum is consistent with RV pressure/volume overload. There is septal hypokinesis. The right ventricle is mildly dilated. The right ventricular systolic function is mildly reduced. The left atrium is moderate to severely dilated. There is no mitral valve stenosis. There is moderate to severe mitral regurgitation. There is moderate tricuspid regurgitation. Right ventricular systolic pressure is 50mmHg. There is Doppler evidence for moderate pulmonary hypertension. There is no aortic stenosis. There is no pericardial effusion. There is a moderate pleural effusion. Final Reading Physician: Yossi Carter signed on 06/28/2016 11:19 AM Ordering Physician: Joshua Franco Performed By: Bryan Leavitt, CS
[2016-06-28] MEDS: ALLOPURINOL 100 MG TAB TUBE SCH (11:51)
[2016-06-28] MEDS: VENLAFAXINE HCL 25 MG TAB TUBE SCH ×2 (11:52→21:10)
[2016-06-28] MEDS: GABAPENTIN 250 MG/5 ML 30 ML BOTTLE TUBE SCH ×3 (11:52→21:14)
--- NOTE | 2016-06-28 13:27 | PCMIDPN ---
Assessment/Plan: #Septic Shock secondary to influenza with concern for superimposed CAP versus aspiration pneumonia. No h/o of MRSA, unclear if recent abx use. Noted patient received abx prior to sputum cx. Generalized improvement with minimal O2 requirements, AF, improved renal function and normalization of WBC --dc vancomycin, no specific organism isolated --planned 5 day course of cefepime for possible superimposed bacterial pneumonia, will DC tomorrow evening -- plan 7 days of Tamiflu for severe illness, dose adjusted for improved renal function micro lood cultures ( 2) NGTD 06/24 Sputum: Josefa medications Cefepime 2 g IV Q 12, # 4 Tamiflu 30 mg per NG tube, # 4 Vancomycin IV, #4 Subjective: Did fairly well with wean but still mentation remains low Objective: Vital Signs Temp Pulse Resp BP Pulse Ox 36.3 C 78 12 110/57 L 100 06/28/16 12:00 06/28/16 13:00 06/28/16 13:00 06/28/16 13:00 06/28/16 13:00 Laboratory Results 06/28/16 03:45 06/28/16 03:45 06/27/16 06/28/16 06/29/16 05:59 05:59 05:59 Intake Total 3080 2111.3 Output Total 1200 1425 Balance 1880 686.3 - Physical Exam General Appearance: obese, other (withdraws to tactile stimulation) EENT: ET Tube, other (OGT; Obvious ecchymosis and swelling over left eye) Respiratory: coarse breath sounds, No wheezing Neck: supple Cardiac/Chest: regular rate, rhythm Extremities: pedal edema, No erythema Abdomen: non-tender, soft Skin: No rash - Line/s other Lines: other ( right subclavian TLC C/D/I), No drainage, No erythema ICD10 Worksheet Patient Problems: Problems Problem Status Onset Head injury Acute Pneumonia Acute Sepsis Acute Altered mental status Acute Hyperkalemia Acute Nausea and vomiting Acute Palliative care encounter Acute Renal failure, acute on chronic Acute
--- NOTE | 2016-06-28 15:15 | HOSPPROG ---
Hospitalist Progress Note Assessment/Plan: * Septic shock -off Levophed * Influenza A -Tamiflu * Suspect secondary bacterial PNA - nosocomial -Cefepime, IV Vanco stopped * Acute respiratory failure - vent -wean as able * Morbid Obesity BMI 48 * Chronic venous stasis - very volume overloaded -IV lasix - good diuresis * Increased LFT - due to sepsis/shock liver * h/o PE/DVT/IVC filter * INR elevation - not on warfarin -hepatic failure vs. 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 waking up. Good UOP on IV lasix Objective: Vital Signs Temp Pulse Resp BP Pulse Ox 36.3 C 78 12 110/57 L 100 06/28/16 12:00 06/28/16 13:00 06/28/16 13:00 06/28/16 13:00 06/28/16 13:00 Laboratory Results 06/28/16 03:45 06/28/16 03:45 06/27/16 06/28/16 06/29/16 05:59 05:59 05:59 Intake Total 3080 2111.3 Output Total 1200 1425 Balance 1880 686.3 PT 16.6 SEC (12.0-15.0) H 06/27/16 03:50 INR 1.34 (0.83-1.16) H 06/27/16 03:50 - Physical Exam Constitutional: no apparent distress, appears nourished, not in pain Cardiovascular: regular rate and rhythym, no murmur, rub, or gallop, edema (4+) Respiratory: no respiratory distress, no rales or rhonchi, clear to auscultation Gastrointestinal: normoactive bowel sounds, soft, non-tender abdomen, no palpable masses Skin: no rashes or abrasions, no fluctuance, no induration Neurologic: No AAOx3 Psychiatric: encephalopathic, agitated, other (sedated on vent but trying to participate in conversation) ICD10 Worksheet Patient Problems: Problems Problem Status Onset Head injury Acute Pneumonia Acute Sepsis Acute Altered mental status Acute Hyperkalemia Acute Nausea and vomiting Acute Palliative care encounter Acute Renal failure, acute on chronic Acute
[2016-06-28 18:46] LABS: POTASSIUM 3.7 mEq/L (3.5-5.2)
[2016-06-28] MEDS ORDERED: POTASSIUM CL 20 MEQ/15 ML UDCUP TUBE ONE (20:30)
[2016-06-28] MEDS ORDERED: FAMOTIDINE 20 MG TAB TUBE SCH (21:00)
[2016-06-28] MEDS: clonazePAM 0.5 MG TAB TUBE SCH (21:00)
[2016-06-29 04:55] LABS: % IMMATURE GRANULYOCYTES 0.4 % (0.0-1.1); ABSOLUTE IMMATURE GRANULOCYTES 0.03 10^3/uL (0.00-0.10); ADD DIFF? NO; ADD MORPH? NO; ADD SCAN? YES; FRAGMENT RBC FLAG 20 (0-99); HEMATOCRIT 30.2 % (38.0-47.0); HEMOGLOBIN 8.8 g/dL (12.6-16.3); LEFT SHIFT FLG 0 (0-99); LIPEMIA HEMOLYSIS FLAG 70 (0-99); MEAN CELL HEMOGLOBIN 25.7 pg (27.9-34.1); MEAN CELL HEMOGLOBIN CONCENTR. 29.1 g/dL (32.4-36.7); MEAN CELL VOLUME 88.3 fL (81.5-99.8); MEAN PLATELET VOLUME 10.9 fL (8.7-11.7); PLATELET CLUMPS FLAG 0 (0-99); PLATELET COUNT 175 10^3/uL (150-400); RED BLOOD CELL COUNT 3.42 10^6/uL (4.18-5.33); RED CELL DISTRIBUTION WIDTH 19.2 % (11.5-15.2)
[2016-06-29 04:56] LABS: ATYPICAL LYMPHOCYTE FLAG 110 (0-99)
[2016-06-29 05:02] LABS: ANION GAP 7 mEq/L (8-16); CALCIUM 7.8 mg/dL (8.5-10.4); CARBON DIOXIDE 30 mEq/l (22-31); CHLORIDE 99 mEq/L (97-110); CREATININE 1.4 mg/dL (0.6-1.0); GLOMERULAR FILTRATION RATE 37; GLUCOSE 101 mg/dL (70-100); MAGNESIUM 1.9 mg/dL (1.6-2.3); POTASSIUM 3.9 mEq/L (3.5-5.2); SODIUM 136 mEq/L (134-144)
[2016-06-29 05:14] LABS: SCAN POSITIVE
[2016-06-29] MEDS: fentaNYL/NACL 100 ML IV SCH (05:15)
[2016-06-29] MEDS: FUROSEMIDE 40 MG/4 ML VIAL IVP SCH ×3 (05:15→21:55)
[2016-06-29 05:21] LABS: BASE EXCESS 2.8 mEq/L (-2.5-2.5); BICARBONATE 27 mEq/L (22-26); IONIZED CALCIUM 1.13 MMOL/L (1.12-1.30); MEASURED OXYGEN SATURATION 97 % (92-95); PCO2 43 mmHg (34-38); PO2 93 mmHg (65-75); TCO2 29 mEq/L (23-27)
[2016-06-29 05:22] LABS: GIANT PLATELETS PRESENT; MACROCYTES 1+; MICROCYTES 1+; PLATELET ESTIMATE ADEQUATE (ADEQ); POLYCHROMASIA 1+
[2016-06-29 05:37] LABS: CPAP YES; END TIDAL CO2 34; O2 CONCENTRATIION 30 % (0-100); P/F RATIO 310 RATIO; PATIENT RATE 18; PRESSURE SUPPORT 7
[2016-06-29] MEDS ORDERED: POTASSIUM CL 10 MEQ TAB PO ONE ×2 (06:36→08:57)
--- NOTE | 2016-06-29 08:45 | PDINTPN ---
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 ABG okay -okay for extubation * Pneumonia/influenza a. A bacterial process cannot be excluded. On Tamiflu and broad-spectrum antibiotics. * Sepsis /hypotension-off pressors * Altered mental status-awake and alert * Morbid obesity. * Massive fluid overload-continue diurese -check ECHO * Decubitus ulcers, erosions. Related to her rectal area and urinary catheter. Present on admission. Wound Care to evaluate. * History of systemic hypertension, chronic indwelling urinary catheter, hydronephrosis with chronic renal insufficiency, etc. * History of multiple drug allergies. * DVT prophylaxis: Enoxaparin * GI prophylaxis: Pepcid * Metabolic: On replacement protocols Case discussed with RT and Nursing 35 min of critical care time spent with patient. Subjective: Awake and alert Objective: Vital Signs Temp Pulse Resp BP Pulse Ox 35.6 C L 84 16 133/61 H 99 06/29/16 04:00 06/29/16 06:00 06/29/16 06:00 06/29/16 06:00 06/29/16 06:00 Laboratory Results 06/29/16 04:45 06/29/16 04:45 06/28/16 06/29/16 06/30/16 05:59 05:59 05:59 Intake Total 2111.3 2553.3 Output Total 1425 5 Balance 686.3 528.3 PT 16.6 SEC (12.0-15.0) H 06/27/16 03:50 INR 1.34 (0.83-1.16) H 06/27/16 03:50 Laboratory Results 06/29/16 04:45 06/29/16 04:45 06/29/16 06/29/16 05:10 04:45 Patient Temperature 36.6 DEGREES DEGREES pCO2 43 mmHg H mmHg (34 - 38) pO2 93 mmHg H mmHg (65 - 75) Total CO2 29 mEq/L H mEq/L (23 - 27) ABG pH 7.42 (7.35 - 7.45) ABG PO2/FiO2 Ratio 310 RATIO RATIO ABG O2 Saturation 97 % H % (92 - 95) ABG Base Excess 2.8 mEq/L H mEq/L (-2.5 - 2.5) O2 Concentration % 30 % % Actual Respiration Rate 18 End Tidal CO2 34 PEEP 5 Pressure Support 7 CPAP YES Calcium 7.8 mg/dL L mg/dL (8.5 - 10.4) Ionized Calcium 1.13 MMOL/L MMOL/L (1.12 - 1.30) Phosphorus 3.1 mg/dL mg/dL (2.5 - 4.5) Magnesium 1.9 mg/dL mg/dL (1.6 - 2.3) - Time Spent With Patient Time Spent With Patient: 35 Physical Exam - Physical Exam General Appearance: alert, no apparent distress EENT: PERRL/EOMI, normal ENT inspection, pharynx normal, TMs normal, ET tube Neck: non-tender, full range of motion, supple, normal inspection Respiratory: chest non-tender, lungs clear, normal breath sounds Cardiac/Chest: normal peripheral pulses, regular rate, rhythm Abdomen: normal bowel sounds, non-tender, soft Pelvic Exam: deferred Rectal: deferred Skin: normal color, warm/dry Extremities: normal range of motion, non-tender, normal inspection, normal capillary refill ICD10 Worksheet Patient Problems: Problems Problem Status Onset Head injury Acute Pneumonia Acute Sepsis Acute Altered mental status Acute Hyperkalemia Acute Nausea and vomiting Acute Palliative care encounter Acute Renal failure, acute on chronic Acute
[2016-06-29] MEDS: OSELTAMIVIR 6 MG/ML UDSYR TUBE SCH (08:51)
[2016-06-29] MEDS: ALLOPURINOL 100 MG TAB TUBE SCH (08:52)
[2016-06-29] MEDS: CEFEPIME HCL 2 GM in D5W 100 ML IV SCH (08:52)
[2016-06-29] MEDS: GABAPENTIN 250 MG/5 ML 30 ML BOTTLE TUBE SCH ×3 (08:52→22:45)
[2016-06-29] MEDS: VENLAFAXINE HCL 25 MG TAB TUBE SCH ×2 (08:53→22:45)
[2016-06-29] MEDS: SENNOSIDES 17.6 MG/10 ML UDL PO SCH ×2 (08:54→21:33)
--- NOTE | 2016-06-29 08:57 | PCMIDPN ---
Assessment/Plan: #Septic Shock secondary to influenza with concern for superimposed CAP versus aspiration pneumonia. No h/o of MRSA, unclear if recent abx use. Noted patient received abx prior to sputum cx. Generalized improvement with minimal O2 requirements on ventilator and much more awake today,, off pressors AF, overall improved renal function and normalization of WBC --DC cefepime this afternoon as completes 5 days for bacterial pneumonia --plan 7 days of Tamiflu for severe illness, MAR adjusted for stop day --call for additional questions from ID service micro lood cultures ( 2) NGTD 06/24 Sputum: Josefa medications Cefepime 2 g IV Q 12, # 5 Tamiflu 30 mg BID per NG tube, # / Subjective: Patient much more awake this a.m., following commands, tentative plan for extubation Objective: Vital Signs Temp Pulse Resp BP Pulse Ox 35.6 C L 84 16 133/61 H 99 06/29/16 04:00 06/29/16 06:00 06/29/16 06:00 06/29/16 06:00 06/29/16 06:00 Laboratory Results 06/29/16 04:45 06/29/16 04:45 06/28/16 06/29/16 06/30/16 05:59 05:59 05:59 Intake Total 2111.3 2553.3 Output Total 1425 2024 Balance 686.3 528.3 General Appearance: obese, following commands EENT: ET Tube, OGT; Obvious ecchymosis and swelling over left eye Respiratory: coarse breath sounds, No wheezing Neck: supple, thick neck Cardiac/Chest: regular rate, rhythm Extremities: pedal edema, No erythema Abdomen: non-tender, soft, rectal tube in place Skin: No rash right subclavian TLC C/D/I), No drainage, No erythema : Mchugh ICD10 Worksheet Patient Problems: Problems Problem Status Onset Head injury Acute Pneumonia Acute Sepsis Acute Altered mental status Acute Hyperkalemia Acute Nausea and vomiting Acute Palliative care encounter Acute Renal failure, acute on chronic Acute
[2016-06-29] MEDS: DOCUSATE SODIUM 100 MG CAP PO SCH ×2 (09:07→21:33)
[2016-06-29 11:20] LABS: BASE EXCESS 2.5 mEq/L (-2.5-2.5); BICARBONATE 27 mEq/L (22-26); MEASURED OXYGEN SATURATION 98 % (92-95); PCO2 46 mmHg (34-38); PO2 118 mmHg (65-75); TCO2 29 mEq/L (23-27)
[2016-06-29] MEDS: ENOXAPARIN 30 MG/0.3 ML SYR SC SCH ×2 (11:23→21:56)
--- NOTE | 2016-06-29 15:14 | WOCRNPDOC ---
WOCRN Advanced Assessment Note - Skin Integrity Problem, Advanced Assess Right Anterior Labia Pressure Injury Dressing Type: Open to Air Exudate Amount: None Exudate Characteristic(s): None Integumentary Issue Intervention: Dressing Applied J Carlos Wound Tissue: Swollen, Denuded J Carlos Wound Swelling: Mild Wound Bed Color: Red, Yellow Wound Bed Constitution: Smooth Tissue, Adhered Slough Site Odor: None Pressure Injury Stage: Unstageable, Director Of Strategic Alliances Related Pressure Injury Pressure Injury Present on Admit: Yes Skin Integrity Problem Comment: No change in wound since previous assessment. Remains slough-filled w/ smooth tissue noted circumferentially. This is a difficult site for a dressing, as there is a significant amount of perspiration limiting adherence. I applied skin prep barrier film copiously, followed by a hydrocolloid dressing in an effort to initiate autolytic debridement of the necrotic tissue. Generalized Buttock Incont Assoc Dermatitis Dressing Type: Open to Air Exudate Amount: None Exudate Characteristic(s): None Integumentary Issue Intervention: Lotion/Cream Applied (Calazime) J Carlos Wound Tissue: Blanching, Erythema, Raw, Denuded J Carlos Wound Swelling: Mild Skin Integrity Problem Comment: Some improvement noted since previous assessment. Satellite lesions resolving, and there is reduced moist desquamation of tissue. Area remains very fragile and friable. Continue w/ Calazime skin protectant. Coccyx Pressure Injury Dressing Type: Open to Air Exudate Amount: None Exudate Characteristic(s): None Integumentary Issue Intervention: Dressing Applied J Carlos Wound Tissue: Raw, Denuded J Carlos Wound Swelling: Mild Wound Bed Color: Yellow Wound Bed Constitution: Adhered Slough Site Odor: None Site Measurement - Head-to-Toe Length X Width X Depth (cm): Small, discrete, slough-filled wound noted directly over coccyx. Moderate to severe incontinence- associated dermatitis j carlos-wound, which make adherence of a dressing difficult. I applied a copious amount of skin prep (from spray bottle) to wound and surrounding tissues, and covered w/ a hydrocolloid dressing to protect site and facilitate debridement. purchasing and fiscal clerkGRAY Artis visualized site and is aware of patient' s need for aggressive off-loading. Pressure Injury Present on Admit: No (New since assessment on 06/26.)
--- NOTE | 2016-06-29 15:56 | HOSPPROG ---
Hospitalist Progress Note Assessment/Plan: * Septic shock -off Levophed * Influenza A -Tamiflu x 7 days * Suspect secondary bacterial PNA - nosocomial -Cefepime per ID * Acute respiratory failure - vent - now extubated * Morbid Obesity BMI 48 * Chronic venous stasis - very volume overloaded -IV lasix - good diuresis * Increased LFT - due to sepsis/shock liver * h/o PE/DVT/IVC filter * INR elevation - not on warfarin -hepatic failure vs. 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 -gabapentin * Pressure ulcers (POA) - pressure ulcers from chronic markham -wound care * Dysphagia - NPO -hopefully will pass swallow eval soon Subjective: extubated this am, woke up yesterday afternoon and started following commands on the vent Objective: Vital Signs Temp Pulse Resp BP Pulse Ox 36.4 C 103 H 20 153/133 H 97 06/29/16 08:00 06/29/16 12:00 06/29/16 12:00 06/29/16 12:00 06/29/16 12:00 Laboratory Results 06/29/16 04:45 06/29/16 04:45 06/28/16 06/29/16 06/30/16 05:59 05:59 05:59 Intake Total 2111.3 2553.3 Output Total 1425 2025 950 Balance 686.3 528.3 -950 PT 16.6 SEC (12.0-15.0) H 06/27/16 03:50 INR 1.34 (0.83-1.16) H 06/27/16 03:50 - Physical Exam Constitutional: no apparent distress, appears nourished, not in pain Cardiovascular: regular rate and rhythym, no murmur, rub, or gallop, edema (4+) Respiratory: no respiratory distress, no rales or rhonchi, clear to auscultation Gastrointestinal: normoactive bowel sounds, soft, non-tender abdomen, no palpable masses Skin: no rashes or abrasions, no fluctuance, no induration Neurologic: No AAOx3 Psychiatric: encephalopathic, other (very somnolent at this time, per nursing was awake and talking this am), No interacting appropriately, No agitated ICD10 Worksheet Patient Problems: Problems Problem Status Onset Head injury Acute Pneumonia Acute Sepsis Acute Altered mental status Acute Hyperkalemia Acute Nausea and vomiting Acute Palliative care encounter Acute Renal failure, acute on chronic Acute
[2016-06-29 17:52] LABS: POTASSIUM 3.6 mEq/L (3.5-5.2)
[2016-06-29] MEDS: HYDROmorphONE/DILAUDID 1 MG/ML SYR IVP PRN (21:56)
[2016-06-29] MEDS: POTASSIUM Cl (KCl) 50 ML IV SCH ×2 (22:00→23:26)
[2016-06-29] MEDS: clonazePAM 0.5 MG TAB TUBE SCH (22:45)
[2016-06-30] MEDS: OSELTAMIVIR 6 MG/ML UDSYR TUBE SCH ×3 (00:16→21:39)
[2016-06-30] MEDS: POTASSIUM Cl (KCl) 50 ML IV SCH (00:19)
--- NOTE | 2016-06-30 00:51 | HOSPPROG ---
Hospitalist Progress Note Assessment/Plan: XC Note Notified by RN regarding NG tube placement to administer oral meds, including Tamiflu. OG tube apparently came out with extubation today. RN attempted NG tube placement x4, xray reviewed. It appears NG tube is in the left lung. There is a left apical PTX. She has an increased O2 requirement from 3 LPM to 6 LPM. Lungs sounds are coarse b/l. Trauma surgery notified, reviewed films and course of events with Dr. Calderon and RN. Unclear if this may have been an esophageal perforation, though film appears that NG tube goes into left mainstem bronchus and PTX is likely due to lung injury. Plan is to obtain CT chest for further evaluation. Appreciate surgery assistance. Objective: Vital Signs Temp Pulse Resp BP Pulse Ox 36.4 C 97 22 H 118/49 L 95 06/29/16 21:00 06/30/16 00:23 06/30/16 00:23 06/30/16 00:00 06/30/16 00:23 Laboratory Results 06/29/16 04:45 06/29/16 17:22 06/28/16 06/29/16 06/30/16 05:59 05:59 05:59 Intake Total 2111.3 2553.3 528 Output Total 1425 2025 2275 Balance 686.3 528.3 -1747 PT 16.6 SEC (12.0-15.0) H 06/27/16 03:50 INR 1.34 (0.83-1.16) H 06/27/16 03:50 ICD10 Worksheet Patient Problems: Problems Problem Status Onset Head injury Acute Pneumonia Acute Sepsis Acute Altered mental status Acute Hyperkalemia Acute Nausea and vomiting Acute Palliative care encounter Acute Renal failure, acute on chronic Acute
--- NOTE | 2016-06-30 00:58 | PDCONSULT ---
Automotive Glazier Note: I was consulted by Dr. Dupont in regards to a left pneumothorax on Ms. Harrell. This was detected on portable CXR after 4 attempts at Dobhoff feeding tube placement. She was extubated earlier today and has a R pneumonia due to influenza. Patient is confused and breathing with some effort/she is unable to answer questions and appears in mild respiratory distress. O2 sat is 95% on 10 lpm via oxymask Patient is morbidly obese There is a right subclavian central venous catheter in place/there is evidence of attempted left subclavian catheter attempt or placement There is no crepitance in the neck or chest wall There are fine vesicular breath sounds with scattered rrales R>L diminished breath sounds are noted at both bases CXR shows a Dobhoff catheter in an abberant position in the left chest/above the diaphragm 4 films were obtained, though I have only been able to review 2/ Imp: Left apical pneumothorax, unclear etiology possible causes include transtracheal/bronchial injury, esophageal injury, pneumo following attempted left subclavian cath placment (least likely) Rec: CT chest/observe for now Will cover for potential mediastinitis until esophageal injury excluded Flex Calderon MD, FACS CT reviewed and discussed with Dr. Hinojosa: no evidence of mediastinal air/ left pneumothorax likely due to LLL pulmonary injury. I called Ms. Harrell's sister who has her Medical POA and I explained the injury and the possible need for left chest tube placement. After a lengthy discussion about the pros and cons as well as her overall course and prognosis she agreed to allow chest tube placement if her condition worsens. Flex Calderon MD, FACS
[2016-06-30] MEDS: HYDROmorphONE/DILAUDID 1 MG/ML SYR IVP PRN ×5 (02:21→23:18)
[2016-06-30 03:50] LABS: IONIZED CALCIUM 1.18 MMOL/L (1.12-1.30)
[2016-06-30 03:53] LABS: % IMMATURE GRANULYOCYTES 0.7 % (0.0-1.1); ABSOLUTE IMMATURE GRANULOCYTES 0.06 10^3/uL (0.00-0.10); ABSOLUTE NRBC COUNT 0.02 10^3/uL (0-0.01); ADD DIFF? NO; ADD MORPH? NO; ADD SCAN? YES; FRAGMENT RBC FLAG 20 (0-99); HEMATOCRIT 33.6 % (38.0-47.0); HEMOGLOBIN 9.9 g/dL (12.6-16.3); LEFT SHIFT FLG 0 (0-99); LIPEMIA HEMOLYSIS FLAG 70 (0-99); MEAN CELL HEMOGLOBIN 25.5 pg (27.9-34.1); MEAN CELL HEMOGLOBIN CONCENTR. 29.5 g/dL (32.4-36.7); MEAN CELL VOLUME 86.6 fL (81.5-99.8); MEAN PLATELET VOLUME 10.4 fL (8.7-11.7); NRBC-AUTO% 0.2 % (0.0-0.2); PLATELET CLUMPS FLAG 0 (0-99); PLATELET COUNT 215 10^3/uL (150-400); RED BLOOD CELL COUNT 3.88 10^6/uL (4.18-5.33); RED CELL DISTRIBUTION WIDTH 19.5 % (11.5-15.2)
[2016-06-30 04:03] LABS: ANION GAP 8 mEq/L (8-16); CALCIUM 8.3 mg/dL (8.5-10.4); CARBON DIOXIDE 32 mEq/l (22-31); CHLORIDE 100 mEq/L (97-110); CREATININE 1.5 mg/dL (0.6-1.0); GLOMERULAR FILTRATION RATE 34; GLUCOSE 112 mg/dL (70-100); MAGNESIUM 1.7 mg/dL (1.6-2.3); POTASSIUM 3.8 mEq/L (3.5-5.2); SODIUM 140 mEq/L (134-144)
[2016-06-30 04:07] LABS: ATYPICAL LYMPHOCYTE FLAG 130 (0-99)
[2016-06-30] MEDS ORDERED: MAGNESIUM SULF 1 GM/DEXTROSE 100 ML IV ONE ×2 (04:07→09:10)
[2016-06-30] MEDS ORDERED: POTASSIUM Cl (KCl) 50 ML IV ONE ×3 (04:08→19:21)
[2016-06-30 04:44] LABS: SCAN NEGATIVE
[2016-06-30] MEDS: FUROSEMIDE 40 MG/4 ML VIAL IVP SCH ×3 (05:08→21:44)
[2016-06-30] MEDS ORDERED: cefOXitin SODIUM 2 GM in D5W 100 ML IV SCH (06:00)
--- NOTE | 2016-06-30 06:45 | SOAPPROG ---
Downtime Inpatient MD Late Entry SOAP Note: Ms. Harrell's repeat CXR shows progression of the left pneumothorax. I recommend proceeding with left closed tube thoracostomy and will discuss with Dr. Hull who will be on in house call for the next 24 hours. Clinically she has been remarkably stable for the past 6 hours with O2 weaned to 3 lpm via NC with O2 sats of 96%. Flex Calderon MD, FACS
[2016-06-30] MEDS ORDERED: LIDOCAINE 1% 2 ML INJ ONE ×2 (07:35)
--- NOTE | 2016-06-30 09:28 | PDINTPN ---
Generator Rebuilder Progress Note Assessment/Plan: Assessment/Plan: * Acute respiratory failure-stable off vent * Iatrogenic PTX-from feeding tube placement -CT in place * Pneumonia/influenza a. On Tamiflu and broad-spectrum antibiotics. * Sepsis /hypotension-off pressors * Altered mental status-awake and alert * Morbid obesity. * Massive fluid overload-continue diurese -ECHO with EF of 47 % * Decubitus ulcers, erosions. Related to her rectal area and urinary catheter. Present on admission. Wound Care to evaluate. * History of systemic hypertension, chronic indwelling urinary catheter, hydronephrosis with chronic renal insufficiency, etc. * History of multiple drug allergies. * DVT prophylaxis: Enoxaparin * GI prophylaxis: Pepcid * Metabolic: On replacement protocols Case discussed with RT and Nursing Subjective: awake and alert Objective: Vital Signs Temp Pulse Resp BP Pulse Ox 36.7 C 93 22 H 117/66 96 06/30/16 04:00 06/30/16 06:00 06/30/16 06:00 06/30/16 06:00 06/30/16 06:00 Laboratory Results 06/30/16 03:40 06/30/16 03:40 06/29/16 06/30/16 07/01/16 05:59 05:59 05:59 Intake Total 2553.3 895 Output Total 5 3375 Balance 528.3 -2480 PT 16.6 SEC (12.0-15.0) H 06/27/16 03:50 INR 1.34 (0.83-1.16) H 06/27/16 03:50 Physical Exam - Physical Exam General Appearance: mild distress EENT: PERRL/EOMI, normal ENT inspection Neck: non-tender, full range of motion, supple, normal inspection Respiratory: respiratory distress (mild), crackles (left), No stridor, No wheezing Cardiac/Chest: normal peripheral pulses, regular rate, rhythm, systolic murmur Abdomen: normal bowel sounds, non-tender, soft Pelvic Exam: deferred Rectal: deferred Skin: normal color, warm/dry Neuro/Psych: alert ICD10 Worksheet Patient Problems: Problems Problem Status Onset Head injury Acute Pneumonia Acute Sepsis Acute Altered mental status Acute Hyperkalemia Acute Nausea and vomiting Acute Palliative care encounter Acute Renal failure, acute on chronic Acute
[2016-06-30] MEDS ORDERED: FUROSEMIDE 20 MG/2 ML VIAL ONE (09:44)
[2016-06-30] MEDS: ALLOPURINOL 100 MG TAB TUBE SCH (09:50)
[2016-06-30] MEDS: DOCUSATE SODIUM 100 MG CAP PO SCH ×2 (09:50→21:39)
[2016-06-30] MEDS: ENOXAPARIN 30 MG/0.3 ML SYR SC SCH ×2 (09:50→21:43)
[2016-06-30] MEDS: VENLAFAXINE HCL 25 MG TAB TUBE SCH ×2 (09:51→21:40)
[2016-06-30] MEDS: SENNOSIDES 17.6 MG/10 ML UDL PO SCH ×2 (09:51→21:39)
[2016-06-30] MEDS: GABAPENTIN 250 MG/5 ML 30 ML BOTTLE TUBE SCH ×3 (09:51→21:40)
--- NOTE | 2016-06-30 13:21 | GOP ---
[f rep st] OPERATIVE REPORT DATE OF OPERATION: 06/30/2016 SURGEON: Sanchez Hull MD TRIM INSTALLER: None. ANESTHESIA: Local with IV sedation. PREOPERATIVE DIAGNOSIS: Left pneumothorax. POSTOPERATIVE DIAGNOSIS: Left pneumothorax. PROCEDURE PERFORMED: Left chest tube thoracostomy placement. FINDINGS: Large son of air upon entering chest cavity. Tube successfully placed. Postoperative chest x-ray shows complete resolution of pneumothorax. SPECIMENS: None. ESTIMATED BLOOD LOSS: 3 cc. DESCRIPTION OF PROCEDURE: The patient's sister, her MD LOUISE was successfully consented over the phone. A World [employer] time-out was performed prior to the procedure. The patient's left chest was prepped and draped in typical sterile fashion. I anesthetized the area using 1% lidocaine plain. After successful anesthetization, I made an approximate 3 cm incision in the anterior axillary line at the approximate 5th intercostal space. I tracked this over the ribs. I entered the chest cavity bluntly and had 1 large son of air through this intercostal space. I successfully placed 24-Mauritanian straight chest tube into the chest cavity, which was tidaling well, and had pleural fluid emanating from it. It was attached to the skin with a silk suture and attached to a Pleur-Evac successfully to suction. It was then appropriately dressed. The patient tolerated the procedure well with no intraprocedural complications. DRAINS: A 24-Mauritanian straight chest tube, tidaling well with air leak. /[id number]/MODL MTDD
--- NOTE | 2016-06-30 14:40 | HOSPPROG ---
Hospitalist Progress Note Assessment/Plan: * Septic shock -off Levophed * Influenza A -Tamiflu x 7 days * Left iatrogenic pneumothorax after attempted feeding tube placement s/p chest tube placement -cont care per surgery * Suspect secondary bacterial PNA - nosocomial -Cefepime per ID * Acute respiratory failure - vent - now extubated * Morbid Obesity BMI 48 * Chronic venous stasis - very volume overloaded -IV lasix - good diuresis * Increased LFT - due to sepsis/shock liver * h/o PE/DVT/IVC filter * INR elevation - not on warfarin -hepatic failure vs. 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 unsure if meaningful recovery is possible Subjective: unresponive not answering questions Objective: Vital Signs Temp Pulse Resp BP Pulse Ox 36.7 C 86 16 101/44 L 94 06/30/16 12:00 06/30/16 13:00 06/30/16 13:00 06/30/16 13:00 06/30/16 13:00 Laboratory Results 06/30/16 03:40 06/30/16 03:40 06/29/16 06/30/16 07/01/16 05:59 05:59 05:59 Intake Total 2553.3 895 Output Total 2024 3375 Balance 528.3 -2480 PT 16.6 SEC (12.0-15.0) H 06/27/16 03:50 INR 1.34 (0.83-1.16) H 06/27/16 03:50 - Physical Exam Constitutional: no apparent distress, appears nourished, not in pain Cardiovascular: regular rate and rhythym, no murmur, rub, or gallop, edema Respiratory: no respiratory distress, no rales or rhonchi, clear to auscultation Gastrointestinal: normoactive bowel sounds, soft, non-tender abdomen, no palpable masses, No guarding, No rebound ICD10 Worksheet Patient Problems: Problems Problem Status Onset Renal failure, acute on chronic Acute Altered mental status Acute Nausea and vomiting Acute Hyperkalemia Acute Palliative care encounter Acute Sepsis Acute Head injury Acute Pneumonia Acute
[2016-06-30] MEDS ORDERED: LIDOCAINE 1% 2 ML INJ SC ONE (15:00)
--- NOTE | 2016-06-30 15:03 | PDPCPN ---
Palliative Care Progress Note Assessment/Plan: Referring provider: Dr Franco Reason for consult: Complex medical decision making Symptom control HPI: Lilly Harrell is a 75 yo female with PMH urinary retention with chronic markham, HTN, gout, seizures, CKD, PE, and morbid obesity admitted to the hospital after being found down at [facility] where she is a LTC resident. When found she was unresponsive, hypoglycemic with agonal breathing and intubated. Admitted to the ICU for septic shock requiring ventilator support and pressures. Found to have PNA as well as Flu+. Hospitalization complicated by poor mental status requiring NG tube with pneumothorax on NG tube placement. Palliative care consulted for complex medical decision making. Spoke with her sister Monserrat outside of the room with DAJUAN Sal and Lisa Samlain. Her sister Monserrat stated Lilly had improved over the summer after her hospitalization for PE and was actually up and walking. Per Monserrat she had declined since then as she was not under "rehab" and was not receiving continued PT/OT services. She has been bed bound since summer with antoinette lift for transfers. Monserrat states despite physically being dependent she has always been 100% mentally clear. Monserrat last saw her 5 weeks ago before a prolonged time away and she was her usual self. She has been speaking with her on the phone and has seemed clear as well up until recently with the UTI in which she has been more confused at times. monserrat discussed she is not sure at this point her future mental status. Lilly has always been clear about what means quality of life to her which is being mentally clear. She enjoys using her ipad, watching the walking , and keeping up on current events. Monserrat is hoping to see how Lilly does over the next couple of days as she has always taken awhile to clear from sedation per Monserrat. We did discuss options including hospice care if Lilly does not improve and the choice of comfort measures only is wanted. Assessment: Physical: - Pain: appears comfortable - monitor for non verbal s/s of pain - dilaudid PRN - Dyspnea: - oxygen per ICU - dilaudid PRN available if needed - constipation - at risk with opiate use - dulcolax supp daily PRN Emotional/psychological: Encephalopathy: monitor for agitation - recently started on ativan for agitation on lawrence clonazepam Advanced Care Planning: Is patient decisional?: No Code Status: No compressions MD LOUISE: sister Monserrat is MDPOA. Plan: Follow mental status over next couple of days. If no improvement in mental status then likely comfort care. If improvement then likely rehab. Subjective: obtunded Objective: Social History: Lives at [facility], 1 sister involved. 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
[2016-06-30 18:05] LABS: POTASSIUM 3.8 mEq/L (3.5-5.2)
[2016-06-30] MEDS: ORAL BALANCE GEL TUBE PO PRN (19:44)
[2016-06-30] MEDS: clonazePAM 0.5 MG TAB TUBE SCH (21:39)
[2016-07-01] MEDS: HYDROmorphONE/DILAUDID 1 MG/ML SYR IVP PRN ×3 (04:36→20:28)
[2016-07-01] MEDS: FUROSEMIDE 40 MG/4 ML VIAL IVP SCH ×3 (05:13→21:25)
[2016-07-01 05:29] LABS: IONIZED CALCIUM 1.22 MMOL/L (1.12-1.30)
[2016-07-01 06:57] LABS: MAGNESIUM 1.9 mg/dL (1.6-2.3); POTASSIUM 3.9 mEq/L (3.5-5.2)
[2016-07-01] MEDS ORDERED: POTASSIUM Cl (KCl) 50 ML IV ONE (07:32)
[2016-07-01] MEDS: ENOXAPARIN 30 MG/0.3 ML SYR SC SCH ×2 (08:36→20:28)
[2016-07-01] MEDS: SENNOSIDES 17.6 MG/10 ML UDL PO SCH ×2 (08:49→20:09)
[2016-07-01] MEDS: ALLOPURINOL 100 MG TAB TUBE SCH (08:49)
[2016-07-01] MEDS: DOCUSATE SODIUM 100 MG CAP PO SCH ×2 (08:49→20:09)
[2016-07-01] MEDS: OSELTAMIVIR 6 MG/ML UDSYR TUBE SCH ×2 (08:49→20:09)
[2016-07-01] MEDS: VENLAFAXINE HCL 25 MG TAB TUBE SCH ×2 (08:49→20:10)
[2016-07-01] MEDS: GABAPENTIN 250 MG/5 ML 30 ML BOTTLE TUBE SCH ×3 (08:49→20:10)
--- NOTE | 2016-07-01 09:20 | PDINTPN ---
Statistician Theoretical Progress Note Assessment/Plan: Assessment/Plan: * Acute respiratory failure-stable off vent * Iatrogenic PTX-from feeding tube placement. CXR-no ptx. -CT in place * Pneumonia/influenza a. On Tamiflu and broad-spectrum antibiotics. Worsening infiltrate * Sepsis /hypotension-resolved * Altered mental status-awake, not alert * Morbid obesity. * Massive fluid overload-continue diurese -ECHO with EF of 47 % * Decubitus ulcers, erosions. Related to her rectal area and urinary catheter. Present on admission. Wound Care to evaluate. * History of systemic hypertension, chronic indwelling urinary catheter, hydronephrosis with chronic renal insufficiency, etc. * History of multiple drug allergies. * DVT prophylaxis: Enoxaparin * GI prophylaxis: Pepcid * Metabolic: On replacement protocols Case discussed with RT and Nursing minimal improvement overall. Consider hospice Subjective: eyes open Objective: Vital Signs Temp Pulse Resp BP Pulse Ox 36.6 C 91 14 126/64 H 92 07/01/16 08:00 07/01/16 08:00 07/01/16 08:00 07/01/16 08:00 07/01/16 08:00 Laboratory Results 06/30/16 03:40 07/01/16 05:20 06/30/16 07/01/16 07/02/16 05:59 05:59 05:59 Intake Total 895 561 Output Total 3375 3600 Balance -2480 -3039 PT 16.6 SEC (12.0-15.0) H 06/27/16 03:50 INR 1.34 (0.83-1.16) H 06/27/16 03:50 Physical Exam - Physical Exam General Appearance: No alert EENT: PERRL/EOMI, normal ENT inspection Neck: non-tender, full range of motion Respiratory: respiratory distress (mild), crackles, No wheezing Cardiac/Chest: normal peripheral pulses, regular rate, rhythm Peripheral Pulses: 2+: carotid (R), carotid (L), femoral (R), femoral (L), dorsalis-pedis (R), dorsalis-pedis (L) Abdomen: normal bowel sounds, non-tender, soft Pelvic Exam: deferred Rectal: deferred Skin: normal color, warm/dry ICD10 Worksheet Patient Problems: Problems Problem Status Onset Head injury Acute Pneumonia Acute Sepsis Acute Altered mental status Acute Hyperkalemia Acute Nausea and vomiting Acute Palliative care encounter Acute Renal failure, acute on chronic Acute
[2016-07-01] MEDS ORDERED: ALLOPURINOL 100 MG TAB TUBE SCH (10:29)
[2016-07-01] MEDS ORDERED: ACETAMINOPHEN 650 MG/20.3 ML UDCUP TUBE PRN (10:59)
--- NOTE | 2016-07-01 11:39 | SOAPPROG ---
SOAP Progress Note Assessment/Plan: Assessment: 75 yo woman found down 1 week ago at [facility] Chart and imaging personally reviewed Admitted to medicine for multiple chronic medical issues Current altered mental status - moans when awake Iatrogenic left PTX due to feeding tube malpositioning. CT left chest kinked but functional.; PTX completely resolved with resolution of atelectasis [address], no air leak. respiratory variation noted, CT site c /d/i Likely Right lung pneumonia Plan: CT to water seal at midnight with CXR in am and removal if indicated Will need enteric access for medication/nutrition if desired by family Recommend IR nasoenteric access as primary option 07/01/16 11:34 Objective: Vital Signs Temp Pulse Resp BP Pulse Ox 36.6 C 89 13 116/44 L 90 L 07/01/16 08:00 07/01/16 11:00 07/01/16 11:00 07/01/16 11:00 07/01/16 11:00 Laboratory Results 06/30/16 03:40 07/01/16 05:20 06/30/16 07/01/16 07/02/16 05:59 05:59 05:59 Intake Total 895 561 Output Total 3375 3600 Balance -2480 -3039 PT 16.6 SEC (12.0-15.0) H 06/27/16 03:50 INR 1.34 (0.83-1.16) H 06/27/16 03:50 ICD10 Worksheet Patient Problems: Problems Problem Status Onset Head injury Acute Pneumonia Acute Sepsis Acute Altered mental status Acute Hyperkalemia Acute Nausea and vomiting Acute Palliative care encounter Acute Renal failure, acute on chronic Acute
--- NOTE | 2016-07-01 15:31 | HOSPPROG ---
Hospitalist Progress Note Assessment/Plan: * Septic shock (resolved) -off Levophed * Influenza A -Tamiflu x 7 days * Left iatrogenic pneumothorax after attempted feeding tube placement s/p chest tube placement -cont care per surgery * Suspect secondary bacterial PNA - nosocomial -Cefepime per ID * Acute respiratory failure - vent - now extubated * Morbid Obesity BMI 48 * Chronic venous stasis - very volume overloaded -IV lasix - good diuresis * Increased LFT - due to sepsis/shock liver * h/o PE/DVT/IVC filter * INR elevation (improving) -start lmwh for dvt-p * Urinary retention with chronic Markham catheter -recent tx UTI at [facility] -no evidence for recurrent UTI * Hypoglycemia - due to sepsis -resolved * Acute on chronic renal failure - at baseline 1.4 * Metabolic encephalopathy - improved -following commands * Pulmonary nodules - increasing in size * 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 unsure if meaningful recovery is possible. family is considering hospice care. Subjective: unresponsive Objective: Vital Signs Temp Pulse Resp BP Pulse Ox 37.2 C 103 H 22 H 158/61 H 87 L 07/01/16 14:00 07/01/16 14:00 07/01/16 14:00 07/01/16 14:00 07/01/16 14:00 Laboratory Results 06/30/16 03:40 07/01/16 05:20 06/30/16 07/01/16 07/02/16 05:59 05:59 05:59 Intake Total 895 561 Output Total 3375 3600 Balance -2480 -3039 PT 16.6 SEC (12.0-15.0) H 06/27/16 03:50 INR 1.34 (0.83-1.16) H 06/27/16 03:50 - Physical Exam Constitutional: chronically ill appearing, obese Cardiovascular: regular rate and rhythym, no murmur, rub, or gallop, edema ( bilat feet) Respiratory: no respiratory distress, no rales or rhonchi, clear to auscultation Gastrointestinal: normoactive bowel sounds, soft, non-tender abdomen, no palpable masses, No guarding, No rebound Neurologic: other (aaox0) ICD10 Worksheet Patient Problems: Problems Problem Status Onset Renal failure, acute on chronic Acute Altered mental status Acute Nausea and vomiting Acute Hyperkalemia Acute Palliative care encounter Acute Sepsis Acute Head injury Acute Pneumonia Acute
[2016-07-01] MEDS: LORazepam 2 MG/ML INJ IV PRN (21:25)
[2016-07-01] MEDS: clonazePAM 0.5 MG TAB TUBE SCH (21:26)
[2016-07-01] MEDS: ORAL BALANCE GEL TUBE PO PRN (21:34)
[2016-07-02] MEDS: LORazepam 2 MG/ML INJ IV PRN ×3 (00:50→12:15)
[2016-07-02] MEDS: HYDROmorphONE/DILAUDID 1 MG/ML SYR IVP PRN ×2 (00:50→08:10)
[2016-07-02] MEDS: ORAL BALANCE GEL TUBE PO PRN ×2 (01:31→08:23)
[2016-07-02] MEDS: FUROSEMIDE 40 MG/4 ML VIAL IVP SCH ×2 (06:48→16:05)
[2016-07-02] MEDS: ENOXAPARIN 30 MG/0.3 ML SYR SC SCH (08:07)
[2016-07-02 08:28] VITALS: TEMP 98.8
--- NOTE | 2016-07-02 08:31 | SOAPPROG ---
SOAP Progress Note Assessment/Plan: Assessment: s/p left chest tube placement for pneumothorax no pneumo yesterday on suction/ no air leak Plan:CT placed to H2O seal/will check CXR later today 07/02/16 08:30 Subjective: obtunded/confused Objective: Vital Signs Temp Pulse Resp BP Pulse Ox 37.1 C 96 23 H 147/73 H 100 07/02/16 08:00 07/02/16 08:00 07/02/16 08:00 07/02/16 08:00 07/02/16 08:00 Laboratory Results 06/30/16 03:40 07/01/16 05:20 07/01/16 07/02/16 07/03/16 05:59 05:59 05:59 Intake Total 561 235 Output Total 3600 1315 Balance -3039 -1080 PT 16.6 SEC (12.0-15.0) H 06/27/16 03:50 INR 1.34 (0.83-1.16) H 06/27/16 03:50 Physical Exam - Physical Exam Cardiac/Chest: other (CT on 20 cm suction/no air leak) ICD10 Worksheet Patient Problems: Problems Problem Status Onset Head injury Acute Pneumonia Acute Sepsis Acute Altered mental status Acute Hyperkalemia Acute Nausea and vomiting Acute Palliative care encounter Acute Renal failure, acute on chronic Acute
--- NOTE | 2016-07-02 09:03 | PDINTPN ---
Web Applications Architect Progress Note Assessment/Plan: Assessment/Plan: * Acute respiratory failure-stable off vent * Iatrogenic PTX-from feeding tube placement. CXR-no ptx. -CT in place * Pneumonia/influenza a. On Tamiflu and broad-spectrum antibiotics. Worsening infiltrate * Sepsis /hypotension-resolved * Altered mental status-no improvement. Likely some anoxic brain injury * Morbid obesity. * Massive fluid overload-continue diurese -ECHO with EF of 47 % * Decubitus ulcers, erosions. Related to her rectal area and urinary catheter. Present on admission. Wound Care to evaluate. * History of systemic hypertension, chronic indwelling urinary catheter, hydronephrosis with chronic renal insufficiency, etc. * History of multiple drug allergies. * DVT prophylaxis: Enoxaparin * GI prophylaxis: Pepcid * Metabolic: On replacement protocols * Prognosis grim. Hospice to see Case discussed with RT and Nursing Subjective: Opens eyes Objective: Vital Signs Temp Pulse Resp BP Pulse Ox 37.1 C 96 23 H 147/73 H 100 07/02/16 08:00 07/02/16 08:00 07/02/16 08:00 07/02/16 08:00 07/02/16 08:00 Laboratory Results 06/30/16 03:40 07/01/16 05:20 07/01/16 07/02/16 07/03/16 05:59 05:59 05:59 Intake Total 561 235 Output Total 3600 1315 Balance -3039 -1080 PT 16.6 SEC (12.0-15.0) H 06/27/16 03:50 INR 1.34 (0.83-1.16) H 06/27/16 03:50 Physical Exam - Physical Exam General Appearance: obese, No alert EENT: PERRL/EOMI, normal ENT inspection Neck: non-tender, full range of motion, supple Respiratory: crackles (few), No respiratory distress, No stridor, No wheezing Cardiac/Chest: normal peripheral pulses, regular rate, rhythm Abdomen: normal bowel sounds, non-tender, soft Pelvic Exam: deferred Rectal: deferred ICD10 Worksheet Patient Problems: Problems Problem Status Onset Head injury Acute Pneumonia Acute Sepsis Acute Altered mental status Acute Hyperkalemia Acute Nausea and vomiting Acute Palliative care encounter Acute Renal failure, acute on chronic Acute
[2016-07-02] MEDS: DOCUSATE SODIUM 100 MG CAP PO SCH (09:37)
[2016-07-02] MEDS: SENNOSIDES 17.6 MG/10 ML UDL PO SCH (09:37)
[2016-07-02] MEDS: VENLAFAXINE HCL 25 MG TAB TUBE SCH (09:37)
[2016-07-02] MEDS: GABAPENTIN 250 MG/5 ML 30 ML BOTTLE TUBE SCH ×2 (09:37→16:05)
[2016-07-02 09:57] LABS: % IMMATURE GRANULYOCYTES 0.6 % (0.0-1.1); ABSOLUTE IMMATURE GRANULOCYTES 0.05 10^3/uL (0.00-0.10); ADD DIFF? NO; ADD MORPH? YES; ADD SCAN? NO; ATYPICAL LYMPHOCYTE FLAG 30 (0-99); FRAGMENT RBC FLAG 20 (0-99); HEMATOCRIT 33.1 % (38.0-47.0); HEMOGLOBIN 9.4 g/dL (12.6-16.3); LEFT SHIFT FLG 0 (0-99); LIPEMIA HEMOLYSIS FLAG 70 (0-99); MEAN CELL VOLUME 91.4 fL (81.5-99.8); MEAN PLATELET VOLUME 10.7 fL (8.7-11.7); PLATELET CLUMPS FLAG 0 (0-99); PLATELET COUNT 218 10^3/uL (150-400); RED BLOOD CELL COUNT 3.62 10^6/uL (4.18-5.33); RED CELL DISTRIBUTION WIDTH 19.9 % (11.5-15.2)
[2016-07-02 09:59] LABS: MEAN CELL HEMOGLOBIN CONCENTR. 28.4 g/dL (32.4-36.7)
[2016-07-02 10:38] LABS: ANION GAP 11 mEq/L (8-16); CALCIUM 8.5 mg/dL (8.5-10.4); CARBON DIOXIDE 32 mEq/l (22-31); CHLORIDE 102 mEq/L (97-110); CREATININE 1.6 mg/dL (0.6-1.0); GLOMERULAR FILTRATION RATE 32; GLUCOSE 98 mg/dL (70-100); POTASSIUM 3.7 mEq/L (3.5-5.2); SODIUM 145 mEq/L (134-144)
[2016-07-02 11:05] LABS: POLYCHROMASIA 1+
[2016-07-02 11:06] LABS: HYPOCHROMIA 1+
[2016-07-02 11:07] LABS: LARGE PLATELETS PRESENT; PLATELET ESTIMATE ADEQUATE (ADEQ)
--- NOTE | 2016-07-02 12:23 | PDIAF ---
- Diagnosis Diagnosis: sepsis, influenza, suspected anoxic brain injury Code Status: Limited Resuscitation - Medication Management Discharge Medications: Medications to Continue on Transfer LORazepam [Ativan (*)] 1 mg SL Q6 PRN #0 tab 07/02/16 [Last Taken Unknown] morphINE [morphINE 2mg/ml Inj (*)] 2 - 4 mg IVP Q1HR PRN #0 syr 07/02/16 [Last Taken Unknown] Discharge Medications: Refer to the Discharge Home Medication list for PRN reason. - Orders Diet Texture: Non Oral Meds - Follow Up Care Current Providers and Referrals: SHAKEEL SPEARS [Primary Care Provider] - As per Instructions
--- NOTE | 2016-07-02 12:57 | SOAPPROG ---
Downtime Inpatient MD Late Entry SOAP Note: repeat CXR shows no pneumothorax/left chest tube removed + occlusive dressing applied. S MD Yumiko, FACS
[2016-07-02 16:06] VITALS: BP 108/61; PULSE 86; RESP 19; O2SAT 95
--- NOTE | 2016-07-02 19:45 | GDS ---
[f rep st] TRANSFER SUMMARY TRANSFER DIAGNOSES: 1. Septic shock. 2. Influenza A. 3. Suspected secondary bacterial pneumonia. 4. Acute respiratory failure status post extubation. 5. Morbid obesity. 6. Chronic venostasis. 7. Transaminitis due to hepatic hypoperfusion. 8. History of deep venous thrombosis. 9. Urinary retention. 10. Resolved hypoglycemia. 11. Acute on chronic renal failure. 12. Acute encephalopathy possibly due to anoxic brain injury versus metabolic encephalopathy. 13. Pulmonary nodules. 14. Seizure disorder. 15. Pressure ulcers present on admission. 16. Iatrogenic pneumothorax. HOSPITAL COURSE AND STAY BY PROBLEM: 1. Septic shock: The patient was admitted to the intensive care unit after she was found down and subsequently diagnosed with influenza. The patient was intubated and treated in the intensive care unit where she failed to improve clinically. She was treated with antibiotics as well as Tamiflu fo r influenza as well as possible nosocomial pneumonia. On hospital day #8 the decision was made for the patient to go to the hospice care center for further end of life care. 2. Iatrogenic pneumothorax: After the patient was extubated, she failed to wake up. NG tube was a ttempted at bedside and resulted in iatrogenic pneumothorax. The patient subsequently had a chest t ube placed on 06/30/2016. On the day of discharge the chest tube was removed. PHYSICAL EXAMINATION: VITAL SIGNS: On day of discharge blood pressure 130/53, pulse 94, respirator y rate 23, O2 saturation 100% on 4 L Oxymizer. GENERAL: Morbidly obese, unresponsive. Appears unco mfortable. HEART: S1, S2. LUNGS: Clear with diminished breath sounds. ABDOMEN: Soft. EXTREMITI ES: With severe edema. NEUROLOGIC: The patient is not following commands. DISCHARGE MEDICATIONS: Please refer to discharge medication reconciliation in [employer]. DISCHARGE INSTRUCTIONS: The patient will be transferred to inpatient hospice for further end of lif e care. /[id number]/MODL
== END 2016-07-02 17:37 | disposition hospice, home (50) | DRG 870 ==
LOC: EDUNIT# → F2N 13:02 → OBSVTOIN 13:52
PROVIDERS: ADMIT Internal Medicine; ATTEND Family Medicine
PROC: 02HV33Z Insertion of Infusion Device into Superior Vena Cava, Percutaneous Approach (ICD-10-PCS; 2016-06-24)
PROC: 5A1955Z Respiratory Ventilation, Greater than 96 Consecutive Hours (ICD-10-PCS; principal; 2016-06-30)
PROC: 0BH17EZ Insertion of Endotracheal Airway into Trachea, Via Natural or Artificial Opening (ICD-10-PCS; principal; 2016-06-30)
PROC: 0W9B30Z Drainage of Left Pleural Cavity with Drainage Device, Percutaneous Approach (ICD-10-PCS; 2016-06-30)
DX: A41.9 Sepsis, unspecified organism (principal); R65.21 Severe sepsis with septic shock; J10.08 Influenza due to other identified influenza virus with other specified pneumonia; J18.9 Pneumonia, unspecified organism; J96.00 Acute respiratory failure, unspecified whether with hypoxia or hypercapnia; G93.40 Encephalopathy, unspecified; N17.9 Acute kidney failure, unspecified; J95.811 Postprocedural pneumothorax; S00.12XA Contusion of left eyelid and periocular area, initial encounter; R74.0 Nonspecific elevation of levels of transaminase and lactic acid dehydrogenase [LDH]; I12.9 Hypertensive chronic kidney disease with stage 1 through stage 4 chronic kidney disease, or unspecified chronic kidney disease; N18.9 Chronic kidney disease, unspecified; G40.909 Epilepsy, unspecified, not intractable, without status epilepticus; I87.2 Venous insufficiency (chronic) (peripheral); E87.70 Fluid overload, unspecified; R33.9 Retention of urine, unspecified; G47.33 Obstructive sleep apnea (adult) (pediatric); L89.890 Pressure ulcer of other site, unstageable; E66.01 Morbid (severe) obesity due to excess calories; Z68.42 Body mass index [BMI] 45.0-49.9, adult; Z51.5 Encounter for palliative care; W06.XXXA Fall from bed, initial encounter; Y92.122 Bedroom in nursing home as the place of occurrence of the external cause
CPT/HCPCS: 80305; 82947-QW; 92610-GN; 96365; G0480; G8996-GN-CL; G8997-GN-CJ; J0330; J0610; J0692; J0694; J1170; J1265; J1335; J1650; J2185; J2250; J2704; J3010; J3370; J3475